=== PATIENT | female | born 2000 | race African-American/Black ===

== ENCOUNTER 2018-08-12 14:21 | Inpatient (IN) | payer OTHER, SELFPAY ==
[2018-08-12 14:36] VITALS: BMI 29.8
--- NOTE | 2018-08-12 15:00 | PDOC.LDHP ---
Labor and Delivery H&P Chief complaint: other (cramping) HPI: 17 yo G1 @ ~39.3wks by LMP presents to ob triage for abdominal cramping. She states that the cramping comes and goes and started yesterday. She denies LOF, VB, dysuria, discharge. Endorses movement. She has not had any care since the very first ultrasound in December. She thinks her LMP is 11/09/18 which would [address] her at aproximately 39.3wks but she cannot remember her due date. She denies n/v/d/fever. Current gestational age (weeks): 39 (39.3) Dating criteria: last menstrual period, first trimester ultrasound Grav: 1 OB History Details: no care Current complications: none Past Medical History: none Current medications: none Allergies/Adverse Reactions: Allergies Allergy/AdvReac Type Severity Reaction Status Date / Time No Known Allergies Allergy Verified 08/12/18 14:50 Social history: none - Physical Exam General: NAD Heart: RRR Lungs: CTAB Abdomen: gravid Extremeties: no edema FHT: category 2 [place] contractions every: every 5 minutes - Assessment #1)term, sIUP with abdominal cramping- -R/o labor-will monitor via NST; if miah regularly will do a cervical check -Ordered IOB labs and complete ultrasound d/t no prior care -Will provide pt with info to the [facility] if labor ruled out and pt discharged later #2)No care-IOB labs and complete ultrasound ordered
[2018-08-12 15:16] LABS: Amphetamine Not Detected (NotDetected); Barbiturates Screen Not Detected (NotDetected); Benzodiazepine Screen Not Detected (NotDetected); Cocaine Metabolite Screen Not Detected (NotDetected); Medtox Control Line Valid? VALID (VALID); Medtox Reader # READER 1; Methadone Not Detected (NotDetected); Methamphetamine Not Detected (NotDetected); Opiate Screen Not Detected (NotDetected); Oxycodone Screen Not Detected (NotDetected); Phencyclidine (PCP) Not Detected (NotDetected); THC/Cannabinoid Screen Not Detected (NotDetected); Tricyclic Screen Not Detected (NotDetected)
[2018-08-12 15:16] LABS: Hemoglobin 11.1 g/dL (12.0-16.0); Mean Corpuscular HGB CONC 32.1 g/dL (32.0-36.0); Mean Corpuscular Hemoglobin 25.5 pg (25.0-35.0); Mean Corpuscular Volume 79.4 fL (78.0-98.0); Mean Platelet Volume 6.9 fL (7.4-10.4); Platelet Count 325 thou/uL (130-400); RBC Distribution Width 14.1 % (11.5-14.5); Red Blood Cell (RBC) Count 4.35 mill/uL (4.00-5.20); White Blood Cell (WBC) Count 11.3 thou/uL (4.8-10.8)
[2018-08-12 15:47] LABS: Syphilis Antibody Nonreactive (Nonreactive); Syphilis Antibody Index 0.03 S/CO (<1.00 Non-Reactive)
[2018-08-12 15:48] LABS: HIV (1/2) Antibody/Antigen Non-Reactive (NonReactive); HIV 1/2 INDEX 0.06 S/CO (<1.00); Hep B Surf Ag Non-Reactive S/CO (NonReactive)
[2018-08-12 16:46] LABS: Amnisure Test No Membranes Rupture (No Rupture)
[2018-08-12 16:47] LABS: Amnisure Internal Control QC ACCEPTABLE (ACCEPTABLE)
--- NOTE | 2018-08-12 16:52 | ULT ---
FUltrasound obstetrical complete Biophysical profile Doppler duplex of umbilical artery: 08/12/2018 HISTORY: 17-year-old female in third trimester with no care. COMPARISON: None TECHNIQUE: Transabdominal transducer used to evaluate contents of gestational sac with grayscale. Color flow and spectral analysis of the umbilical artery. Biophysical profile obtained. FINDINGS: Biophysical profile: tone: 2 breathin movements: 2 Amniotic fluid: 2 Umbilical artery Doppler: Portion, PSV (cm/s), EDV (cm/s), S/D, PI, RI: At placenta: 30.7, 20.1, 1.53, 0.49, 0.35 Mid: 31.0, 18.8, 1.65, 0.54, 0.39 At cord insertion: 62.7, 26.6, 2.36, 0.95, 0.58 number: Maya lie: Vertex Maternal cervix: Obscured Amniotic fluid: JAS 3 cm heart rate: 130 bpm Placenta: Fundal and to the left. No placenta previa. anatomy: Four-chamber heart, stomach, kidneys, cord insertion, bladder, spine, and three-vessel cord, are visu alized. The rest of the anatomy is not visualized well. biometry: BPD: 8.6 cm 34 weeks 4 days Head circumference: 32.6 cm 36 weeks 6 days Abdominal circumference: 29.9 cm 33 weeks 6 days Femur length: 6.8 cm 34 weeks 6 days Average ultrasound age: 35 weeks 4 days Estimated date of delivery: 09/12/2018 Estimated weight: 2448 g +/- 362 g IMPRESSION: 1. Third trimester live intrauterine gestation. 2. Vertex presentation. 3. Apparent oligohydramnios. 4. Biophysical profile score of 8 out of 8 excluding the nonstress test. 5. Umbilical artery Doppler values as given above.
[2018-08-12] MEDS ORDERED: Diphenoxylate HCl/Atropine Tablet PO PRN ×2 (17:52)
[2018-08-12] MEDS ORDERED: Misoprostol 200 MCG TAB PR PRN (17:52)
[2018-08-12] MEDS ORDERED: Butorphanol Tartrate 1 MG/ML VIAL SLOW IVP PRN (17:52)
[2018-08-12] MEDS ORDERED: Methylergonovine 0.2 MG/ML VIAL IM PRN (17:52)
[2018-08-12] MEDS ORDERED: HYDROcodone/Acetaminophen 5/325 mg Tablet PO PRN ×2 (17:52)
[2018-08-12] MEDS ORDERED: NS / Oxytocin 40 units/1000ml 1,000 ML IV PRN (17:52)
[2018-08-12] MEDS ORDERED: Lidocaine 1% (PF) 30 ML VIAL SC PRN (17:52)
[2018-08-12] MEDS ORDERED: Acetaminophen 500 MG TAB PO PRN (17:52)
[2018-08-12] MEDS ORDERED: Ondansetron PF 4 MG/2 ML Vial IVP PRN ×2 (17:52→20:22)
[2018-08-12] MEDS ORDERED: Ibuprofen 800 MG TAB PO PRN (17:52)
[2018-08-12] MEDS ORDERED: Promethazine HCl 25 MG/ML VIAL IM PRN ×2 (17:52→20:22)
[2018-08-12] MEDS ORDERED: Carboprost 250 MCG/ML AMP IM PRN (17:52)
--- NOTE | 2018-08-12 17:56 | PDOC.EVN ---
Event Note - Event Note Event Note: Pt states that she had an US in December (can't remember day) and they told her that her due date was 08/16/18. She thinks her LMP is 11/09/18. This info would place her at 39.3wks by LMP/1T US. This US was done in [facility] at [facility] ( closed currently until tomorrow). Based on the US today she is measuring at 35.4wks placing the baby in the IUGR range. She also complained of some loss of fluid on her marga pad. The amnisure was negative. However we will do a speculum exam to rule out rupture of membranes. We will also proceed with admitting/delivery since based on her LMP/1T the pt is full-term and the baby is IUGR.
--- NOTE | 2018-08-12 18:20 | PDOC.EVN ---
Event Note - Event Note Event Note: Pt grossly ruptures on speculum exam. Will admit pt and proceed with expectant management. Recheck cervix @1830 and q2h after that.
[2018-08-12] MEDS ORDERED: Fentanyl 4 mcg/Bup 0.1% Cadd 100 ML ONE (19:19)
[2018-08-12] MEDS ORDERED: Penicillin G Potassium 5 MILL.UNITS VIAL ONE (19:51)
--- NOTE | 2018-08-12 19:53 | PDOC.EVN ---
Event Note - Event Note Event Note: Patient reports feeling like she was "peeing when she wasn't actually peeing" 2 days ago indicating likely prolonged SROM. Will start PCN for risk based GBS prophylaxis.
[2018-08-12] MEDS ORDERED: Penicillin G Potassium 5 MILL.UNITS in Sodium Chloride 0.9% 100 ML IVPB SCH (20:00)
--- NOTE | 2018-08-12 20:14 | PDOC.EVN ---
Event Note - Event Note Event Note: Received report from Dr. Izquierdo. 17 yo BF at term by dates and early USG presents with suspected IUGR, now SROM. Pen G started for unknown GBS status. Just received epidural. FHTs stable. UCs q 4-5 mins. Will start pitocin to effect delivery.
[2018-08-12] MEDS: Lactated Ringer's 1,000 ML IV SCH ×2 (20:21→20:22)
[2018-08-12] MEDS ORDERED: ePHEDrine/0.9% NaCl/PF SYRINGE 50 mg/10 ml SLOW IVP PRN (20:22)
[2018-08-12] MEDS ORDERED: Eucerin (Mineral Oil/Petrolatum,White) 30 gm Jar TOP PRN (20:22)
[2018-08-12] MEDS ORDERED: diphenhydrAMINE 50 MG/ML VIAL IVP PRN (20:22)
[2018-08-12] MEDS ORDERED: Naloxone HCl 0.4 mg/ml Vial IVP PRN ×2 (20:22)
[2018-08-12] MEDS ORDERED: Acetaminophen 325 MG TAB PO PRN (20:22)
[2018-08-12] MEDS ORDERED: Lactated Ringer's 500 ML IV PRN (20:22)
[2018-08-12] MEDS ORDERED: Fentanyl 4 mcg/Bupivacaine 0.1% Cassette 100 ML EPIDURAL SCH (20:30)
[2018-08-12] MEDS ORDERED: Communication Order-Pharmacy FS SCH (20:30)
[2018-08-12] MEDS ORDERED: metroNIDAZOLE 500 MG TAB PO SCH (21:00)
--- NOTE | 2018-08-12 23:32 | PDOC.EVN ---
Event Note - Event Note Event Note: Comfortable with epidural. Last exam 6 cm. Fhts stable with occ. variable seen. UCs q 2-3 mins. Pit at 2 mu/min. Cont. present management.
--- NOTE | 2018-08-13 00:01 | PDOC.EVN ---
Event Note - Event Note Event Note: Staying comfortable with epidural. SVE remains 6 cm. FHTs with repetative mild to moderate variables with shoulders. UCs q 3-5 mins. Pit at 2 mu/mins. Will place IUPC to document ctx and start amnioinfusion for variables.
[2018-08-13] MEDS: Penicillin G 2.5 MILL.units 2.5 MILL.UNITS in Premix Bag 1 BAG IVPB SCH ×2 (00:09→15:10)
[2018-08-13] MEDS: Lactated Ringer's 1,000 ML IV SCH (00:11)
--- NOTE | 2018-08-13 02:20 | PDOC.EVN ---
Event Note - Event Note Event Note: T now= 100.4. SVE unchanged. caput with cervical swelling noted. FHTs stable. UCs q 3-4 mins. Pitocin is off. Plan: Will proceed to 1* C/S 2* to FTP, suspected chorioamnionitis.
[2018-08-13] MEDS ORDERED: CEFAZOLIN 2 GM in Premix Bag 1 BAG IVPB SCH (02:30)
[2018-08-13] MEDS ORDERED: Bicitra 30 ML UDCUP PO SCH (02:30)
[2018-08-13] MEDS ORDERED: Azithromycin 500 MG in Sodium Chloride 0.9% 250 ML 250 ML IVPB SCH (03:00)
[2018-08-13] MEDS ORDERED: Midazolam HCl 2 mg/2 ml Vial ONE (03:34)
[2018-08-13] MEDS ORDERED: Dexamethasone 4 mg/ml Vial ONE (03:34)
[2018-08-13] MEDS ORDERED: Oxytocin 10 UNITS/ML VIAL ONE (03:34)
[2018-08-13] MEDS ORDERED: Ondansetron PF 4 MG/2 ML Vial ONE (03:34)
[2018-08-13] MEDS ORDERED: MORPHINE 5 MG/10 ML PF VIAL ONE (03:35)
[2018-08-13] MEDS ORDERED: Methylergonovine 0.2 MG/ML VIAL ONE (03:42)
[2018-08-13 03:58] LABS: Actual Bicarbonate (HCO3a) 24.9 mEq/L (22-28); Base Excess (BEa) -3.9 mEq/L (-2.0 to +3.0)
[2018-08-13 04:00] LABS: Actual Bicarbonate (HCO3v) 25 mEq/L (22-28); Base Excess -1.6 mEq/L (-2.0 to +3.0); pH (Cord, venous) 7.33 (7.32-7.43)
[2018-08-13] MEDS ORDERED: Communication Order-Pharmacy FS SCH (04:00)
[2018-08-13] MEDS ORDERED: Promethazine HCl 25 MG SUPP PR PRN (04:00)
[2018-08-13] MEDS ORDERED: Naloxone HCl 0.4 mg/ml Vial IVP PRN ×2 (04:00)
[2018-08-13] MEDS ORDERED: Eucerin (Mineral Oil/Petrolatum,White) 30 gm Jar TOP PRN (04:00)
[2018-08-13] MEDS ORDERED: Naloxone HCl 0.4 mg/ml Vial IV PRN (04:00)
[2018-08-13] MEDS ORDERED: Promethazine HCl 25 MG/ML VIAL IM PRN (04:00)
[2018-08-13] MEDS ORDERED: diphenhydrAMINE 50 MG/ML VIAL IVP PRN (04:00)
[2018-08-13] MEDS ORDERED: Ketorolac Tromethamine 30 MG/ML VIAL IVP SCH (04:00)
[2018-08-13] MEDS ORDERED: Ondansetron HCl/PF 4 MG/2 ML Vial IVP PRN (04:00)
[2018-08-13] MEDS ORDERED: Ketorolac Tromethamine 30 MG/ML VIAL IVP PRN (04:00)
[2018-08-13] MEDS ORDERED: HYDROmorphone 2 MG/ML VIAL SLOW IVP PRN (04:00)
[2018-08-13] MEDS ORDERED: Ondansetron PF 4 MG/2 ML Vial IVP PRN ×2 (04:00→05:53)
[2018-08-13] MEDS ORDERED: Meperidine HCl/PF 25 MG/ML VIAL SLOW IVP PRN (04:00)
[2018-08-13] MEDS ORDERED: L&D-Morphine 4 MG/ML VIAL SLOW IVP PRN (04:00)
[2018-08-13] MEDS ORDERED: NS / Oxytocin 40 units/1000ml 1,000 ML ONE (04:17)
[2018-08-13] MEDS: NS w/ Oxytocin 10 units 500 ML IV SCH ×2 (04:40→15:10)
--- NOTE | 2018-08-13 05:17 | OP ---
DATE OF PROCEDURE: 08/13/2018 PREOPERATIVE DIAGNOSES: 1. Suspected term intrauterine with possible intrauterine growth retardation and limited care. 2. Failure to progress. 3. Suspected chorioamnionitis. POSTOPERATIVE DIAGNOSES: 1. Term intrauterine with limited care. 2. Failure to progress. 3. Suspected chorioamnionitis. 4. Persistent occiput posterior. PROCEDURE PERFORMED: Primary low segment transverse section via Pfannenstiel incision. SURGEON: Eagle Solo MD [employer] SURGEON: Oksana Falcon MD, resident physician. FINDINGS: 1. Viable male infant, Apgars 7 and 9. Weight 6 pounds 7 ounces, found in the occiput posterior position. 2. Normal uterus, tubes, and ovaries bilaterally. 3. Arterial cord pH of 7.23. PROPHYLAXIS: Ancef 2 g and Zithromax 500 mg preoperatively. QUANTITATIVE BLOOD LOSS: 415 mL. COMPLICATIONS: None. TECHNIQUE IN DETAIL: After good epidural anesthesia was achieved, the patient was prepped and draped in usual sterile fashion in the supine position with a leftward tilt. A Pfannenstiel incision was made, and the abdomen was entered in layers. The uterus was identified, and self-retaining retractor was placed. A transverse incision was made across the lower uterine segment and was extended bluntly using the fingers. The fetus was found in the occiput posterior position and was delivered with fundal pressure. There was a loop of cord around the baby's shoulders. The cord was clamped and cut, and the nasopharynx of the baby was bulb suctioned. The baby was taken to the staff, who was in attendance. The placenta was manually removed after cord blood and cord gases were obtained. The inside of the uterus was curetted with a dry lap to remove all remaining placental fragments. Closure of the uterine incision was begun using a running locking suture of Monocryl. Good hemostasis was noted with single-layer closure. The uterus was replaced in the abdominal cavity, and the peritoneal cavity was copiously irrigated. The uterine incision was again reviewed and was noted to be hemostatic. The retractor was then removed, and the peritoneum was closed using a running suture of Monocryl. The rectus muscles were inspected and noted to be dry. Closure of the fascia was accomplished using 0 Monocryl brought laterally to the midline. The subcutaneous tissue was thoroughly irrigated and made dry using Bovie coagulation technique. The skin was closed with metal jesusita. Sponge, lap, and needle counts were correct. The patient tolerated the procedure well and was taken to the recovery room in good condition. Job ID: [id number] [facility]
[2018-08-13] MEDS ORDERED: NS / Oxytocin 40 units/1000ml 1,000 ML IV SCH (05:53)
[2018-08-13] MEDS ORDERED: diphenhydrAMINE 25 MG CAP PO PRN (05:53)
[2018-08-13] MEDS ORDERED: Lanolin Ointment 7 GM TUBE TOP PRN (05:53)
[2018-08-13] MEDS ORDERED: Bisacodyl 10 MG SUPP PR PRN (05:53)
[2018-08-13] MEDS ORDERED: HYDROcodone/Acetaminophen 5/325 mg Tablet PO PRN ×3 (05:53→13:48)
[2018-08-13] MEDS: Ibuprofen 800 MG TAB PO SCH ×3 (08:06→21:34)
[2018-08-13] MEDS: Ferrous Sulfate 325 MG TAB PO SCH ×2 (08:07→21:35)
[2018-08-13] MEDS: Docusate Calcium (SURFAK) 240 MG CAP PO SCH ×2 (08:07→21:34)
[2018-08-13] MEDS: Prenatal Vitamin 1 TAB PO SCH (08:08)
[2018-08-13] MEDS ORDERED: Adacel (T-DAP) 0.5 ML SYRINGE IM ONE (09:00)
[2018-08-13] MEDS ORDERED: Measles/Mumps/Rubella 10 MCG/0.5 ML VIAL SC ONE (09:00)
[2018-08-13 16:16] LABS: Hemoglobin 10.1 g/dL (12.0-16.0); Mean Corpuscular HGB CONC 32.2 g/dL (32.0-36.0); Mean Corpuscular Hemoglobin 25.6 pg (25.0-35.0); Mean Corpuscular Volume 79.5 fL (78.0-98.0); Mean Platelet Volume 6.9 fL (7.4-10.4); Platelet Count 288 thou/uL (130-400); RBC Distribution Width 14.2 % (11.5-14.5); Red Blood Cell (RBC) Count 3.96 mill/uL (4.00-5.20); White Blood Cell (WBC) Count 16.9 thou/uL (4.8-10.8)
[2018-08-13] MEDS: Simethicone Chewable 80 MG TAB PO PRN ×2 (16:29→21:34)
[2018-08-13] MEDS: HYDROcodone/Acetaminophen 5/325 mg Tablet PO PRN (16:30)
[2018-08-14] MEDS: Ibuprofen 800 MG TAB PO SCH ×3 (05:05→21:26)
[2018-08-14] MEDS: HYDROcodone/Acetaminophen 5/325 mg Tablet PO PRN (05:05)
--- NOTE | 2018-08-14 08:36 | PDOC.PP ---
Post Progress Note Post Day #: 2 Subjective: 17 yo G1 with no care admitted for latent labor and concern for IUGR in this , now s/p primary LTCS d/t failure to progress. PO intake tolerated: yes Flatus: yes Ambulation: yes Vital Signs (12 hours) Temp Pulse Resp BP BP Pulse Ox 08/14/18 08:20 98.3 F 71 20 121/89 98 08/14/18 05:00 98.2 F 81 16 101/65 08/13/18 23:33 99.7 F H 83 16 119/83 08/13/18 21:45 103 H 103/97 H Weight Weight 78.925 kg - Physical Examination General: NAD Cardiovascular: no m/r/g, RRR Respiratory: clear to auscultation bilaterally, non-labored breathing Abdominal: + bowel sounds, lochia (minimal) Skin: CS incision dry & intact Neurological: no gross focal deficits Psychiatric: A&Ox3, normal affect Result Diagrams: 08/14/18 09:03 Additional Labs: Post Labs Blood Type O POSITIVE 08/12/18 17:16 Hep Bs Antigen Non-Reactive S/CO (NonReactive) 08/12/18 15:02 Rubella IgG Antibody 4.21 index (Immune >0.99) 08/12/18 15:02 (1) S/P section Code(s): Z98.891 - HISTORY OF UTERINE SCAR FROM PREVIOUS SURGERY Status: Acute (2) No care in current Code(s): O09.30 - SUPRVSN OF PREG W INSUFFICIENT ANTENAT CARE, UNSP TRIMESTER Status: Acute - Assessment/Plan 17 yo G1 s/p primary LTCS to a suspected term male infant based on pt's hx of edc 08/16, POD 2 #sIUP, delivered via primary LTCS -pt underwent csection for failure to progress -she did spike one fever but has been afebrile since that time; wbc increased to 16, however afebrile and uterus nontender on exam; will continue to monitor -pt received amp and azithro prior to -routine care -cm consult to assist pt; pt desires to keep the baby (there was initial question of possible adoptions) -norco prn pain -gabrielle ibuprofen -doc/senna -encourage ambulation -pt tolerating normal diet -anticipate dc >72 hours; jesusita to be removed prior to discharge -discussed follow-up with [facility] for care #No care- -aware Mumtaz Hanna MD, PGY-2 Addendum - Attending - Attending Attestation Date/Time: 08/14/18 1005 I personally evaluated the patient and discussed the management with Dr. Falcon. Doing well s/p 1* C/S for FTP. I agree with the History, Examination, Assessment and Plan documented above.
--- NOTE | 2018-08-14 08:38 | PRG ---
DATE OF SERVICE: 08/14/2018 SUBJECTIVE: The patient is postoperative day 1, status post primary for failure to progress. The patient reports overnight she has had good pain control and have been tolerating p.o., has began walking on her own and has voided on her own. OBJECTIVE: VITAL SIGNS: Blood pressure is 98.2, pulse of 81, respiratory rate of 16, and blood pressure of 101/65. Of note, she has had a T-max of 99.7. The patient did have an elevated temperature just prior to delivery. ABDOMEN: Incision is clean, dry, and intact and soft. Fundus is firm. EXTREMITIES: Nontender, nonedematous. LABORATORY DATA: Post delivery, hemoglobin unavailable at this time. ASSESSMENT AND PLAN: The patient is postop day 1, status post a primary . The patient is recovering well. I have ordered a repeat CBC for evaluation of her postoperative hemoglobin and hematocrit. The patient has no evidence of persistent fever or infection, though the patient is at risk with the elevated temperature just prior to this delivery. We will continue in-house postoperative care. Job ID: [id number]
[2018-08-14] MEDS: Docusate Calcium (SURFAK) 240 MG CAP PO SCH ×2 (08:57→21:26)
[2018-08-14] MEDS: Prenatal Vitamin 1 TAB PO SCH (08:57)
[2018-08-14] MEDS: Ferrous Sulfate 325 MG TAB PO SCH ×2 (09:00→21:26)
[2018-08-14 09:10] LABS: #Basophils 0.1 thou/uL (0.0-0.2); #Eosinphils 0.2 thou/uL (0.0-0.7); #Lymphocytes 3.1 thou/uL (1.20-3.40); #Monocytes 1.9 thou/uL (0.11-0.59); #Neutrophils 9.8 thou/uL (1.40-6.50); %Basophils 0.4 % (0.0-1.0); %Eosinophils 1.6 % (0.0-10.0); %Lymphocytes 20.6 % (28.0-48.0); %Monocytes 12.4 % (0.0-4.0); %Neutrophils 65.1 % (31.0-61.0); Mean Corpuscular HGB CONC 31.4 g/dL (32.0-36.0); Mean Corpuscular Volume 79.8 fL (78.0-98.0); Mean Platelet Volume 6.7 fL (7.4-10.4); Platelet Count 299 thou/uL (130-400); RBC Distribution Width 14.1 % (11.5-14.5); Red Blood Cell (RBC) Count 3.98 mill/uL (4.00-5.20); White Blood Cell (WBC) Count 15.1 thou/uL (4.8-10.8)
[2018-08-14 18:06] LABS: Chlamydia by PCR DETECTED (NotDetected); GC by PCR Not Detected (NotDetected)
[2018-08-15] MEDS: Ibuprofen 800 MG TAB PO SCH ×3 (06:15→21:37)
[2018-08-15 07:32] LABS: Hemoglobin 9.5 g/dL (12.0-16.0); Mean Corpuscular HGB CONC 32.9 g/dL (32.0-36.0); Mean Corpuscular Hemoglobin 25.9 pg (25.0-35.0); Mean Corpuscular Volume 78.8 fL (78.0-98.0); Platelet Count 304 thou/uL (130-400); RBC Distribution Width 14.4 % (11.5-14.5); Red Blood Cell (RBC) Count 3.67 mill/uL (4.00-5.20); White Blood Cell (WBC) Count 13.1 thou/uL (4.8-10.8)
--- NOTE | 2018-08-15 07:42 | PDOC.PP ---
Post Progress Note Post Day #: 2 Subjective: Doing well. Ambulating, passing flatus, tolerating po, pain controlled. PO intake tolerated: yes Flatus: yes Ambulation: yes Vital Signs (12 hours) Temp Pulse Resp BP Pulse Ox 08/15/18 03:50 98.4 F 101 H 18 106/63 08/15/18 00:00 98.3 F 69 18 121/78 08/14/18 20:00 98.5 F 72 18 129/84 96 Weight Weight 78.925 kg - Physical Examination General: NAD Cardiovascular: no m/r/g, RRR Respiratory: clear to auscultation bilaterally, non-labored breathing Abdominal: lochia Result Diagrams: 08/15/18 07:05 Additional Labs: Post Labs Blood Type O POSITIVE 08/12/18 17:16 Hep Bs Antigen Non-Reactive S/CO (NonReactive) 08/12/18 15:02 Rubella IgG Antibody 4.21 index (Immune >0.99) 08/12/18 15:02 (1) S/P section Code(s): Z98.891 - HISTORY OF UTERINE SCAR FROM PREVIOUS SURGERY Status: Acute (2) No care in current Code(s): O09.30 - SUPRVSN OF PREG W INSUFFICIENT ANTENAT CARE, UNSP TRIMESTER Status: Acute - Assessment/Plan 17 yo G1 s/p primary LTCS to a suspected term male based on pt's hx of edc 08/16, POD 2 #sIUP, delivered via primary LTCS -pt underwent csection for failure to progress -she did spike one fever but has been afebrile since that time; wbc increased to 16, downtrended to 13, afebrile and uterus nontender on exam this initial fever; will continue to monitor -pt received amp and azithro prior to -routine care -norco prn pain and gabrielle ibuprofen 800mg TID -doc/senna prn -encourage ambulation -pt tolerating normal diet -anticipate dc >72 hours; jesusita to be removed prior to discharge -discussed follow-up at [facility] for care #Chlamydia infection- -Ordered 1g azithromicin now #No care- -aware Dispo: dc planning for tomorrow CODE: Full DVT prophylaxis: encourage ambulation, SCDs H. Ezekiel Hanna MD, PGY-2
[2018-08-15] MEDS ORDERED: Azithromycin 250 MG TAB PO SCH ×2 (08:15→09:00)
[2018-08-15] MEDS: Prenatal Vitamin 1 TAB PO SCH (09:13)
[2018-08-15] MEDS: Docusate Calcium (SURFAK) 240 MG CAP PO SCH ×2 (09:13→21:37)
[2018-08-15] MEDS: Ferrous Sulfate 325 MG TAB PO SCH ×2 (09:13→21:37)
[2018-08-16] MEDS: Ibuprofen 800 MG TAB PO SCH (06:17)
--- NOTE | 2018-08-16 06:18 | PDOC.PP ---
Post Progress Note Post Day #: 3 Subjective: Doing well, pain wel controlled. Treated for chlamydia yesterday. PO intake tolerated: yes Flatus: yes Ambulation: yes Vital Signs (12 hours) Temp Pulse Resp BP Pulse Ox 08/16/18 00:00 97.5 F L 87 20 119/74 08/15/18 19:25 97.9 F 89 18 119/77 99 Weight Weight 174 lb - Physical Examination General: NAD Cardiovascular: no m/r/g Respiratory: clear to auscultation bilaterally Abdominal: + bowel sounds, lochia, no distention, appropriately TTP Extremities: negative homans (B) Skin: CS incision dry & intact, no rash Neurological: no gross focal deficits Psychiatric: A&Ox3, normal affect Result Diagrams: 08/15/18 07:05 Additional Labs: Post Labs Blood Type O POSITIVE 08/12/18 17:16 Hep Bs Antigen Non-Reactive S/CO (NonReactive) 08/12/18 15:02 Rubella IgG Antibody 4.21 index (Immune >0.99) 08/12/18 15:02 (1) No care in current Code(s): O09.30 - SUPRVSN OF PREG W INSUFFICIENT ANTENAT CARE, UNSP TRIMESTER Status: Acute (2) S/P section Code(s): Z98.891 - HISTORY OF UTERINE SCAR FROM PREVIOUS SURGERY Status: Acute - Assessment/Plan A/P: POD3...doing well. Treated for chlamydia yesterday by Dr Falcon. No evidence metritis or ileus...ok for DC to home today. Ema out today, or Monday (preferred) Home with motrin prn follow up with [facility] in 2 weeks wound check
--- NOTE | 2018-08-16 07:20 | PDOC.PP ---
Post Progress Note Post Day #: 3 Subjective: Doing well. Pain controlled. Ambulating, voiding, passing flatus/stool, tolerating normal diet, no pain at incision site. Minimal bleeding. PO intake tolerated: yes Flatus: yes Ambulation: yes Vital Signs (12 hours) Temp Pulse Resp BP Pulse Ox 08/16/18 00:00 97.5 F L 87 20 119/74 08/15/18 19:25 97.9 F 89 18 119/77 99 Weight Weight 78.925 kg - Physical Examination General: NAD Cardiovascular: no m/r/g, RRR Respiratory: clear to auscultation bilaterally, non-labored breathing Abdominal: + bowel sounds, lochia (minimal) Skin: CS incision dry & intact, no rash Neurological: no gross focal deficits Psychiatric: A&Ox3, normal affect Result Diagrams: 08/15/18 07:05 Additional Labs: Post Labs Blood Type O POSITIVE 08/12/18 17:16 Hep Bs Antigen Non-Reactive S/CO (NonReactive) 08/12/18 15:02 Rubella IgG Antibody 4.21 index (Immune >0.99) 08/12/18 15:02 (1) S/P section Code(s): Z98.891 - HISTORY OF UTERINE SCAR FROM PREVIOUS SURGERY Status: Acute (2) No care in current Code(s): O09.30 - SUPRVSN OF PREG W INSUFFICIENT ANTENAT CARE, UNSP TRIMESTER Status: Acute - Assessment/Plan 17 yo G1 s/p primary LTCS 2/2 failure to progress and intrapartum fever. #sIUP, delivered via primary LTCS -pt underwent csection for failure to progress -she did spike one fever but has been afebrile since that time; wbc increased to 16, downtrended to 13, afebrile and uterus nontender on exam this initial fever; will continue to monitor -pt received amp and azithro prior to -pt has undergone routine care and can be discharged today, with close follow-up. Needs jesusita out POD#5; will coordinate with [facility] to get pt in on Monday for jesusita removal. -will send ibuprofen 800mg TID prn -doc/senna prn -will send in a script for iron as H/H 9.5/28.9 and stool softener #Chlamydia infection- -S/p1g azithromicin yesterday #No care- -aware, pt to follow-up at [facility] for jesusita removal Dispo: dc planning for today CODE: Full DVT prophylaxis: encourage ambulation, SCDs Mumtaz Hanna MD, PGY-2
[2018-08-16] MEDS: Prenatal Vitamin 1 TAB PO SCH (08:02)
[2018-08-16] MEDS: Docusate Calcium (SURFAK) 240 MG CAP PO SCH (08:02)
[2018-08-16] MEDS: Ferrous Sulfate 325 MG TAB PO SCH (08:02)
[2018-08-16 08:31] VITALS: BP 123/77; TEMP 98.1
== END 2018-08-16 15:10 | disposition home or self-care (01) | DRG 787 ==
LOC: L&D/OP 14:21 → L&D 18:25 → 3SW 08-13 07:10
PROVIDERS: ADMIT Obstetrics & Gynecology; ATTEND Obstetrics & Gynecology
PROC: 10D00Z1 Extraction of Products of Conception, Low, Open Approach (ICD-10-PCS; principal; 2018-08-13)
DX: O66.40 Failed trial of labor, unspecified (principal); O98.82 Other maternal infectious and parasitic diseases complicating childbirth; O09.33 Supervision of pregnancy with insufficient antenatal care, third trimester; B96.89 Other specified bacterial agents as the cause of diseases classified elsewhere; Z3A.39 39 weeks gestation of pregnancy; Z37.0 Single live birth; Z98.891 History of uterine scar from previous surgery
CPT/HCPCS: 36415; 36416; 51702; 59025; 76700; 76805; 76819; 80306; 82805; 84112; 85025; 85027; 86762; 86780; 86850; 86900; 86901; 87081; 87340; 87389; 87480; 87510; 87660; 88307; 90715; 99285; J0456; J0595; J1100; J1885; J2210; J2250; J2270; J2405; J2540; J2590; J7050

== ENCOUNTER 2019-03-04 16:31 | Emergency (ER) | payer BC, SELFPAY ==
[2019-03-04 17:09] LABS: #Basophils 0.1 thou/uL (0.0-0.2); #Eosinphils 0.5 thou/uL (0.0-0.7); #Lymphocytes 2.6 thou/uL (1.20-3.40); #Monocytes 0.8 thou/uL (0.11-0.59); #Neutrophils 4.7 thou/uL (1.40-6.50); %Basophils 0.9 % (0.0-1.0); %Eosinophils 5.7 % (0.0-10.0); %Lymphocytes 29.8 % (28.0-48.0); %Monocytes 9.4 % (0.0-4.0); %Neutrophils 54.1 % (31.0-61.0); Hemoglobin 12.8 g/dL (12.0-16.0); Mean Corpuscular HGB CONC 31.4 g/dL (32.0-36.0); Mean Corpuscular Hemoglobin 27.2 pg (25.0-35.0); Mean Corpuscular Volume 86.9 fL (78.0-98.0); Mean Platelet Volume 6.9 fL (7.4-10.4); Platelet Count 278 thou/uL (130-400); RBC Distribution Width 12.9 % (11.5-14.5); Red Blood Cell (RBC) Count 4.68 mill/uL (4.00-5.20); White Blood Cell (WBC) Count 8.6 thou/uL (4.8-10.8)
[2019-03-04 18:14] LABS: Bilirubin Negative (Negative); Blood, Urine Negative (Negative); Clarity Clear (Clear); Glucose, Urine (Dipstick) Normal (Negative); Leukocyte 25 Leu/uL (Negative); Nitrite Negative (Negative); Protein, Urine (Dipstick) Negative (Neg-Trace); RBC/HPF 0-3 HPF (0-3); Squamous Epithelial None Seen HPF (0-3); Urobilinogen Normal mg/dL (Less than 2)
[2019-03-04 18:15] LABS: Bacteria/HPF 1+ HPF (None Seen)
--- NOTE | 2019-03-04 18:47 | ULT ---
TRANSABDOMINAL TRANSVAGINAL PELVIC ULTRASOUND DATE:: 03/04/2019 5:54 PM CLINICAL HISTORY: History of . COMPARISON: None. TECHNIQUE: Grayscale, color Doppler and spectral Doppler images were obtained of the pelvis see a tra nsabdominal transvaginal approach Uterus: Size: 9.4 x 4.2 x 5.9 Mass: None Cervix: Within normal limits Endometrium: 1.07 cm thickness, with thin normal limits for a premenopausal female. No intrauterine g estation demonstrated. Ovaries: Size: right measures 2.7 x 1.3 x 2.7 cm; left measures 2.9 x 1.8 x 3.0 cm Mass: There is a 2.5 cm left ovarian cyst.. Flow: Normal Cul-de-sac: Minimal free fluid IMPRESSION: No intrauterine gestation demonstrated. Findings are consistent with a of undetermined loca tion. Findings may reflect early , ectopic or missed . Continued clinical and sonographic follow up is recommended. Left ovarian cyst.
== END 2019-03-04 18:56 | disposition home or self-care (01) ==
LOC: ERS 16:31
DX: O20.0 Threatened abortion (principal); Z3A.01 Less than 8 weeks gestation of pregnancy
CPT/HCPCS: 36415; 76856; 81003; 81015; 84702; 85025; 86900; 86901

== ENCOUNTER 2019-03-17 09:07 | Inpatient (IN) | payer BC ==
[2019-03-17] MEDS ORDERED: Acetaminophen 500 MG TAB ONE (09:29)
--- NOTE | 2019-03-17 09:52 | RAD ---
RADIOGRAPH CHEST 1 VIEW: DATE: 03/17/2019 HISTORY: 18-year-old female with chest pain FINDINGS: Lungs are hypoinflated; Limited study. There are no airspace densities, pulmonary edema, pneumothorax , or cardiomegaly. The lateral costophrenic angles are sharp. IMPRESSION: No acute cardiopulmonary findings.
[2019-03-17 10:12] LABS: ALT (SGPT) 7 U/L (8-55); AST (SGOT) 13 U/L (5-34); Albumin 4.5 g/dL (3.5-5.0); Alkaline Phosphatase 95 U/L (40-100); Anion Gap 16 mmol/L (10-20); BUN (Urea Nitrogen) 8 mg/dL (7.0-18.7); Bilirubin, Total 1.1 mg/dL (0.2-1.2); Calc. Creatinine Clearance 0 mL/min (70-130); Calcium 9.5 mg/dL (7.8-10.44); Carbon Dioxide 23 mmol/L (22-29); Chloride 100 mmol/L (98-107); Estimated GFR-MDRD 86; Globulin 3.5 g/dL (2.4-3.5); Glucose 106 mg/dL (70-105); Lipase 4 U/L (8-78); Potassium 3.2 mmol/L (3.5-5.1); Sodium 136 mmol/L (136-145)
[2019-03-17 10:18] LABS: Bacteria/HPF 4+ HPF (None Seen); Bilirubin Negative (Negative); Blood, Urine 2+ (Negative); Clarity Turbid (Clear); Glucose, Urine (Dipstick) Normal (Negative); Leukocyte 500 Leu/uL (Negative); Nitrite Negative (Negative); Protein, Urine (Dipstick) 70 mg/dL (Neg-Trace); RBC/HPF Greater than 50 HPF (0-3); Urobilinogen Normal mg/dL (Less than 2); WBC/HPF Greater than 50 HPF (0-3)
[2019-03-17] MEDS ORDERED: cefTRIAXone\\ROCEPHIN 1 GM VIAL ONE (10:27)
[2019-03-17 10:33] LABS: Hemoglobin 14.2 g/dL (12.0-16.0); Mean Corpuscular HGB CONC 33.1 g/dL (32.0-36.0); Mean Corpuscular Hemoglobin 28.2 pg (25.0-35.0); Mean Corpuscular Volume 85.2 fL (78.0-98.0); Mean Platelet Volume 7.3 fL (7.4-10.4); Platelet Count 263 thou/uL (130-400); RBC Distribution Width 12.5 % (11.5-14.5); Red Blood Cell (RBC) Count 5.06 mill/uL (4.00-5.20); White Blood Cell (WBC) Count 22.7 thou/uL (4.8-10.8)
--- NOTE | 2019-03-17 10:36 | ULT ---
ULTRASOUND ABDOMEN LIMITED: (RIGHT UPPER QUADRANT) DATE: 03/17/2019 HISTORY: Right upper quadrant abdominal pain in 18-year-old female FINDINGS: Gallbladder: Normal wall thickness. No gallstones or sludge identified. No pericholecystic fluid. Liver: Normal parenchymal echogenicity. Right kidney: No hydronephrosis. Pancreas: Visualized, with no gross sonographic abnormality identified (although ultrasound is relati vely insensitive for the detection of pancreatic pathology compared to CT and MRI.). Common duct caliber: 3 mm. IMPRESSION: Normal.
[2019-03-17 10:45] LABS: Band 9 % (5-11); Eosinophils 4 % (0-10); Lymphocytes 10 % (28-48); MDiff Complete? YES; Metamyelocyte 1 % (0-0); Monocytes 3 % (0-4); Neutrophil 70 % (31-61); Reactive Lymphocytes 2 % (0-10)
--- NOTE | 2019-03-17 10:57 | ULT ---
ULTRASOUND PELVIC ULTRASOUND TRANSVAGINAL DOPPLER DUPLEX: DATE: 03/17/2019 HISTORY: 18-year-old female with pelvic pain TECHNIQUE: Transabdominal transducer and endovaginal transducer used to visualize intrapelvic contents with mcintosh scale, color-flow, and spectral analysis. FINDINGS: Uterus: 8 x 3.5 x 5 cm. Endometrial stripe: 0.5 cm (5 mm). No moderate sized or large uterine leiomyoma. Right ovary: 2.5 x 3.5 x 1.5 cm. Left ovary: 2.5 x 4 x 2 cm. 1.5 cm dominant follicle, one in each ovary. Blood flow demonstrated in both ovaries by Doppler. No free fluid in cul-de-sac. IMPRESSION: No major pathology identified.
[2019-03-17] MEDS ORDERED: Potassium Chloride 20 MEQ TAB ONE (12:13)
[2019-03-17] MEDS ORDERED: Ondansetron ODT 4 MG TAB PO PRN (13:19)
[2019-03-17] MEDS ORDERED: Ondansetron PF 4 MG/2 ML Vial IVP PRN (13:19)
--- NOTE | 2019-03-17 13:27 | PDOC.FPRHP ---
- History of Present Illness Chief Complaint: R-flank pain History of Present Illness: 18-year-old female, with a past medical history of spontaneous about two weeks ago presents to the emergency department with four days of a headache , right sided flank pain, and bilateral lower extremity pain. Patient denies any dysuria, bloody/dark stools, or smelly urine. Patient states that back in August she gave to her first child and was told that she had chlamydia. Patient states she never received any treatment for this. Patient denies any new sexual partners or any other history of STD. Patient denies any vaginal discharge or abnormal uterine bleeding outside of the two weeks ago. The patient states that two weeks ago she had eight days a very heavy bleeding. Before this she had tested positive for test. Patient has not had any follow up on this problem. Patient c/o right upper quadrant abdominal pain. Denies any history of gallstones. Patient denies any chest pain or shortness of breath. Patient denies any constipation or diarrhea. Patient admits to being nauseous and vomiting yellow emesis this morning and been unable to tolerate food today. ED course: pt fluid resuscitated and started on rocephin. WBC 22.7, HR 121. Admitted for sepsis 2/2 pyelonephritis. - Allergies/Adverse Reactions Allergies Allergy/AdvReac Type Severity Reaction Status Date / Time No Known Allergies Allergy Verified 08/12/18 14:50 - Home Medications Medication Instructions Recorded Confirmed Type Acetaminophen With Codeine 1 - 2 tablet PO Q6HR PRN 08/16/18 03/17/19 History [Tylenol with Codeine #3] Docusate Calcium [Surfak] 240 mg PO BID #30 cap 08/16/18 03/17/19 Rx Ferrous Sulfate [Feosol] 325 mg PO BID #60 tab 08/16/18 03/17/19 Rx Ibuprofen [Motrin] 800 mg PO Q8HR #20 tab 08/16/18 03/17/19 Rx - History PMHx: spontaneous X2 weeks ago, chlamydia. PSHx: FHx: non-contributory Social: Denies smoking, etoh, or drug use. States she has no new sexual partners. - Review of Systems General: reports: fever/chills, fatigue. denies: weight/appetite/sleep changes , night sweats Eyes: denies: eye pain, vision changes ENT: denies: nasal congestion Respiratory: denies: cough, congestion, shortness of breath Cardiovascular: denies: chest pain, palpitation, edema Gastrointestinal: reports: nausea, vomiting, abdominal pain. denies: diarrhea, constipation Genitourinary: denies: incontinence, dysuria, polyuria, discharge Skin: denies: rashes Musculoskeletal: reports: pain, tenderness (R flank) Neurological: denies: syncope, seizure - Vital signs BP: 121/72 HR: 121 RR: 18 Tmax: 98.2 Pox: 100% on RA Wt: 79.4 kg - Physical Exam Constitutional: NAD, awake, alert and oriented, well developed HEENT: normocephalic and atraumatic, PERRLA, EOMI, conjunctiva clear, no scleral icterus, grossly normal vision, grossly normal hearing, MMM, oropharynx clear, good dention Neck: supple, FROM, trachea midline, no LAD, no JVD, no thyromegaly Heart: RRR, normal S1/S2, pulses present -Heart: soft systolic murmur Lungs: CTAB, no respiratory distress, good air movement, no rales/rhonchi, no wheezing, no retractions Abdomen: soft, bowel sounds present, no masses/distention -Abdomen: RUQ and suprapubic abdominal tenderness to palpation Musculoskeletal: normal structure, normal tone, ROM grossly normal -Musculoskeletal: CVA tenderness on R. Neurological: no focal deficit, CN II-XII intact, normal sensation Skin: no rash/lesions, good turgor, capillary refill <2 seconds, no jaundice Heme/Lymphatic: no unusual bruising or bleeding, no purpura, no petechia Psychiatric: normal mood and affect, good judgment and insight, intact recent and remote memory Additional comment: exam: Spec exam: moderate tenderness with insertion of speculum and with CMT. Yellow, thick, foul smelling discharge from cervical os. Closed os. FMR H&P: Results - Labs Result Diagrams: 03/17/19 09:20 03/17/19 09:20 Lab results: WBC 22.7 thou/uL (4.8-10.8) H 03/17/19 09:20 Hgb 14.2 g/dL (12.0-16.0) 03/17/19 09:20 Hct 43.1 % (36.0-47.0) 03/17/19 09:20 MCV 85.2 fL (78.0-98.0) 03/17/19 09:20 Plt Count 263 thou/uL (130-400) 03/17/19 09:20 Band Neuts % (Manual) 9 % (5-11) 03/17/19 09:20 Sodium 136 mmol/L (136-145) 03/17/19 09:20 Potassium 3.2 mmol/L (3.5-5.1) L 03/17/19 09:20 Chloride 100 mmol/L (98-107) 03/17/19 09:20 Carbon Dioxide 23 mmol/L (22-29) 03/17/19 09:20 BUN 8 mg/dL (7.0-18.7) 03/17/19 09:20 Creatinine 1.00 mg/dL (0.6-1.1) 03/17/19 09:20 Glucose 106 mg/dL (70-105) H 03/17/19 09:20 Lactic Acid 1.1 mmol/L (0.5-2.2) 03/17/19 09:20 Calcium 9.5 mg/dL (7.8-10.44) 03/17/19 09:20 Total Bilirubin 1.1 mg/dL (0.2-1.2) 03/17/19 09:20 AST 13 U/L (5-34) 03/17/19 09:20 ALT 7 U/L (8-55) L 03/17/19 09:20 Alkaline Phosphatase 95 U/L (40-100) 03/17/19 09:20 Serum Total Protein 8.0 g/dL (6.0-8.3) 03/17/19 09:20 Albumin 4.5 g/dL (3.5-5.0) 03/17/19 09:20 Lipase 4 U/L (8-78) L 03/17/19 09:20 Urine Ketones 40 mg/dL (Negative) A 03/17/19 09:30 Urine Blood 2+ (Negative) A 03/17/19 09:30 Urine Nitrite Negative (Negative) 03/17/19 09:30 Ur Leukocyte Esterase 500 Elizabeth/uL (Negative) A 03/17/19 09:30 Urine RBC Greater than 50 HPF (0-3) A 03/17/19 09:30 Urine WBC Greater than 50 HPF (0-3) A 03/17/19 09:30 Ur Squamous Epith Cells 11-20 HPF (0-3) A 03/17/19 09:30 Urine Bacteria 4+ HPF (None Seen) A 03/17/19 09:30 - EKG Interpretation EKG: sinus tachycardia, with T wave inversions rate 126 - Radiology Interpretation US - abdomen Status: report reviewed by me (normal) Other Status: report reviewed by me (pelvic US: no abnormal findings) FMR H&P: A/P - Problem List (1) Pyelonephritis Current Visit: Yes Status: Acute Code(s): N12 - TUBULO-INTERSTITIAL NEPHRITIS, NOT SPCF ACUTE OR CHRONIC (2) Leukocytosis Current Visit: Yes Status: Acute Code(s): D72.829 - ELEVATED WHITE BLOOD CELL COUNT, UNSPECIFIED (3) Sepsis Current Visit: Yes Status: Acute Code(s): A41.9 - SEPSIS, UNSPECIFIED ORGANISM Qualifiers: Sepsis type: sepsis due to unspecified organism Sepsis acute organ dysfunction status: without acute organ dysfunction Qualified Code(s): A41.9 - Sepsis, unspecified organism - Plan 18 y/o F admitted to medical for further treatment and evaluation of sepsis, most likely secondary to pyelonephritis. 1. Sepsis 2/2 suspected pyelonephritis, PID, or UTI, vs gallbladder etiology - SIRS: HR 121, 22.7 - Pt fluid resuscitated and Rocephin started in ED. - Continue maintenance fluids at LR 125 mL/hr. - Continue Rocephin 1 G Q24H - additional workup: CT abd, HIDA scan, VP3, GC/C - urine ccx and blood ccx pending - Spec Exam: Tenderness with exam, yellow, foul smelling discharge at os. 2. Pyelonephritis is most likely diagnosis, vs PID. - DDx: PID, Cystitis, gallbladder etiology - CVA tenderness - CT abd pending - WBC 22.7 - Continue antibiotics and IVF hydration - GC/C, VP3 pending 3. Leukocytosis - WBC 22.7 - will trend CBC daily - UA shows evidence of UTI, probably pyelonephritis 4. Hx of spontaneous - X2 weeks ago 5. Hx of Chlamydia - Pt unsure is she was treated - GC/C swab pending - Spec Exam: Tenderness with exam, yellow, foul smelling discharge at os. Code status: Full code Diet: regular diet DVT ppx: SCD's Dispo: admitted to inpatient medical for antibiotics for pyelonephritis. anticipated stay >48 Hr. FMR H&P: Upper Level - Pertinent history 18 yo female with 4 day history of fever, headache, and side pain. Patient reports positive chlamydia history without treatment. She denies hematuria, or dysuria. Please see risk management internship note above for further information. Physical Exam: General: NAD, appears stated age HEENT: moist mucous membranes, PERRLA CV: tachycardic rate, regular rhythm Respiratory: CTA-no wheezing Abdomen: Soft, nontender, no masses Extremities: moves all four equally Neuro: No focal deficits Psych: A&Ox3, normal affect - Plan Date/Time: 03/17/19 6721 I, Trip Starks MD, have evaluated this patient and agree with findings/ plan as outlined by risk management internship resident. Pertinent changes/additions are listed here. 1. Sepsis 2/2 suspected pyelonephritis - Cultures pending - Empiric antibiotics - IVF hydration - Will complete pelvic exam with testing to determine STD vs other pathogens 2. Biliary Colic - Will order HIDA scan for tomorrow due to US results PCP: Jered CODE STATUS: FULL CODE Disposition: Stable, admit to inpatient medical Addendum - Attending - Attending Attestation Date/Time: 03/17/19 4488 I personally evaluated the patient and discussed the management with Dr. Monaco. I agree with the History, Examination, Assessment and Plan documented above with any addition or exceptions noted below. The patient is admitting for sepsis 2/2 pyelonephritis and possibly PID. Will get speculum exam. Blood and urine cultures pending. Treating with rocephin. Pt with right CVA tenderness. She also has RUQ tenderness which is mild and u/ s showed sludge. If pain persists, may consider HIDA scan. Will get GC/ [place], VP3 to further workup possible PID. Starting IV fluids. Replace potassium.
[2019-03-17 14:14] VITALS: BMI 30.9
[2019-03-17] MEDS: Acetaminophen 325 MG TAB PO PRN ×2 (14:19→20:52)
[2019-03-17] MEDS: Lactated Ringer's 1,000 ML IV SCH ×2 (16:00→23:46)
[2019-03-17] MEDS: metroNIDAZOLE 500 MG TAB PO SCH (20:52)
[2019-03-17] MEDS ORDERED: FLU VACC QS2019-20(6MOS UP)/PF 60 MCG/0.5 ML SYRINGE IM ONE (21:00)
[2019-03-17] MEDS ORDERED: Acetaminophen 1,000 MG in Premix Bag 1 BAG IVPB PRN (23:48)
[2019-03-17] MEDS ORDERED: Acetaminophen 500 MG TAB PO PRN (23:50)
[2019-03-17] MEDS: Ibuprofen 200 MG TAB PO PRN (23:56)
[2019-03-17] MEDS ORDERED: Lactated Ringer's 1,000 ML IV SCH (23:59)
--- NOTE | 2019-03-18 05:48 | PDOC.FM ---
- Subjective Subjective: Patient doing well this morning. Reports she had two bouts of emesis last night after she ate, but has been able to keep fluids down. Reports her pain is improved. Has been able to void normally, had some diarrhea yesterday. - Objective Vital Signs & Weight: Vital Signs (12 hours) Temp Pulse Resp BP Pulse Ox 03/18/19 04:26 99.0 F 98 16 106/67 98 03/18/19 02:00 99 F 03/18/19 00:00 102.8 F H 118 H 18 113/63 99 03/17/19 21:30 99.5 F 03/17/19 20:00 100.7 F H 110 H 18 96/65 99 Weight Weight 79.379 kg I&O: 03/16/19 03/17/19 03/18/19 06:59 06:59 06:59 Intake Total 240 Balance 240 Result Diagrams: 03/18/19 05:18 03/18/19 05:17 Phys Exam - Physical Examination Constitutional: NAD HEENT: moist MMs, sclera anicteric Neck: supple, full ROM Respiratory: no wheezing, clear to auscultation bilateral Cardiovascular: RRR, no significant murmur Gastrointestinal: soft slight RUQ tenderness Musculoskeletal: no edema, pulses present R CVA tenderness Neurological: normal sensation, moves all 4 limbs Psychiatric: normal affect, A&O x 3 Skin: normal turgor, cap refill <2 seconds Dx/Plan (1) Leukocytosis Code(s): D72.829 - ELEVATED WHITE BLOOD CELL COUNT, UNSPECIFIED Status: Acute (2) Pyelonephritis Code(s): N12 - TUBULO-INTERSTITIAL NEPHRITIS, NOT SPCF ACUTE OR CHRONIC Status: Acute (3) Sepsis Code(s): A41.9 - SEPSIS, UNSPECIFIED ORGANISM Status: Acute Qualifiers: Sepsis type: sepsis due to unspecified organism Sepsis acute organ dysfunction status: without acute organ dysfunction Qualified Code(s): A41.9 - Sepsis, unspecified organism - Plan Plan: 18 y/o F admitted to medical for further treatment and evaluation of sepsis, most likely secondary to pyelonephritis. #Sepsis 2/2 suspected pyelonephritis, PID, or UTI, vs gallbladder etiology - SIRS: HR 121, 22.7 - Pt fluid resuscitated and Rocephin started in ED. - Tmax of 102.8 overnight with pulse of 118 - Continue maintenance fluids at LR 125 mL/hr. - Continue Rocephin 1 G Q24H for pyelonephritis, flagyl for trichomonas/ gardnerella - VP3: +trichomonas, +gardnerella - additional workup: Gc/C pending - Abdominal U/S: Normal - Transvaginal U/S: No major pathology identified - HIDA scan today - urine ccx and blood ccx pending - Spec Exam: Tenderness with exam, yellow, foul smelling discharge at os. - tylenol and IBP #Leukocytosis - WBC 22.7 > 17.5 - will trend CBC daily - UA shows evidence of UTI, suspect pyelonephritis #Hx of spontaneous - X2 weeks ago #Hx of Chlamydia - Pt unsure is she was treated - GC/C swab pending - Spec Exam: Tenderness with exam, yellow, foul smelling discharge at os. #Diarrhea, started 03/17 -stool studies Code status: Full code Diet: Clears, will advance as tolerated DVT ppx: SCD's Dispo: admitted to inpatient medical for antibiotics for pyelonephritis. Will recommend re-testing for trichomonas outpatient 2-3 weeks after hospital stay . Addendum - Attending - Attending Attestation Date/Time: 03/18/19 1221 I personally evaluated the patient and discussed the management with Dr. Chaudhary. I agree with the History, Examination, Assessment and Plan documented above with any addition or exceptions noted below. Pt febrile to 103 this morning. cultures positive for BV and trichomonas. Treating the std's. Urine culture growing e.coli. Awaiting final cultures. Giving rocephin for pyelonephritis. Continue fluids. Stool studies added for diarrhea. Back off to liquids due to nausea.
[2019-03-18 06:12] LABS: ALT (SGPT) 9 U/L (8-55); AST (SGOT) 13 U/L (5-34); Albumin 3.2 g/dL (3.5-5.0); Alkaline Phosphatase 74 U/L (40-100); Anion Gap 10 mmol/L (10-20); BUN (Urea Nitrogen) 6 mg/dL (7.0-18.7); Bilirubin, Total 0.6 mg/dL (0.2-1.2); Calc. Creatinine Clearance 134 mL/min (70-130); Calcium 8.4 mg/dL (7.8-10.44); Carbon Dioxide 27 mmol/L (22-29); Chloride 106 mmol/L (98-107); Estimated GFR-MDRD Greater than 90; Globulin 2.7 g/dL (2.4-3.5); Glucose 96 mg/dL (70-105); Potassium 3.8 mmol/L (3.5-5.1); Protein, Total 5.9 g/dL (6.0-8.3); Sodium 139 mmol/L (136-145)
[2019-03-18 06:55] LABS: #Basophils 0.1 thou/uL (0.0-0.2); #Eosinphils 0.1 thou/uL (0.0-0.7); #Lymphocytes 2.2 thou/uL (1.20-3.40); #Monocytes 2.2 thou/uL (0.11-0.59); #Neutrophils 12.9 thou/uL (1.40-6.50); %Basophils 0.3 % (0.0-1.0); %Eosinophils 0.4 % (0.0-10.0); %Lymphocytes 12.7 % (28.0-48.0); %Monocytes 12.7 % (0.0-4.0); %Neutrophils 73.9 % (31.0-61.0); Hemoglobin 12.2 g/dL (12.0-16.0); Mean Corpuscular HGB CONC 32.6 g/dL (32.0-36.0); Mean Corpuscular Hemoglobin 27.9 pg (25.0-35.0); Mean Corpuscular Volume 85.6 fL (78.0-98.0); Mean Platelet Volume 7.1 fL (7.4-10.4); Platelet Count 206 thou/uL (130-400); RBC Distribution Width 12.4 % (11.5-14.5); RBC Morphology Normal; Red Blood Cell (RBC) Count 4.37 mill/uL (4.00-5.20); White Blood Cell (WBC) Count 17.5 thou/uL (4.8-10.8)
[2019-03-18] MEDS: Ibuprofen 200 MG TAB PO PRN ×2 (08:19→17:43)
[2019-03-18] MEDS: Lactated Ringer's 1,000 ML IV SCH ×3 (08:20→22:23)
[2019-03-18] MEDS ORDERED: Azithromycin 200 MG/5 ML Oral Suspension PO ONE (09:08)
[2019-03-18] MEDS: metroNIDAZOLE 500 MG TAB PO SCH ×2 (09:16→20:34)
[2019-03-18] MEDS ORDERED: Azithromycin 250 MG TAB PO SCH (10:00)
[2019-03-18] MEDS: cefTRIAXone\\ROCEPHIN 1 GM in Sodium Chloride 0.9% 100 ML IVPB SCH (10:14)
[2019-03-19] MEDS: Ibuprofen 200 MG TAB PO PRN ×2 (00:11→12:34)
--- NOTE | 2019-03-19 05:27 | PDOC.FM ---
- Subjective Subjective: Patient doing well this morning. Did not have any bouts of emesis overnight with liquid diet. Reports improved CVA tenderness. Febrile overnight, Tmax 101.4F at 0000 03/19. - Objective Vital Signs & Weight: Vital Signs (12 hours) Temp Pulse Resp BP Pulse Ox 03/19/19 04:00 98.8 F 81 18 108/73 99 03/19/19 01:30 99.6 F 92 98 03/19/19 00:00 101.4 F H 110 H 18 123/80 100 03/18/19 20:00 98 03/18/19 19:15 98.8 F 92 18 101/66 98 Weight Weight 79.379 kg I&O: 03/17/19 03/18/19 03/19/19 06:59 06:59 06:59 Intake Total 2755 1730 Balance 2755 1730 Result Diagrams: 03/19/19 04:54 03/19/19 06:51 Phys Exam - Physical Examination Constitutional: NAD HEENT: moist MMs, sclera anicteric Neck: supple, full ROM Respiratory: no wheezing, clear to auscultation bilateral Cardiovascular: RRR, no significant murmur Gastrointestinal: soft, non-tender RUQ no longer tender Musculoskeletal: no edema, pulses present R CVA tenderness, improved Neurological: normal sensation, moves all 4 limbs Psychiatric: normal affect, A&O x 3 Skin: no rash, normal turgor Dx/Plan (1) Leukocytosis Code(s): D72.829 - ELEVATED WHITE BLOOD CELL COUNT, UNSPECIFIED Status: Acute (2) Pyelonephritis Code(s): N12 - TUBULO-INTERSTITIAL NEPHRITIS, NOT SPCF ACUTE OR CHRONIC Status: Acute (3) Sepsis Code(s): A41.9 - SEPSIS, UNSPECIFIED ORGANISM Status: Acute Qualifiers: Sepsis type: sepsis due to unspecified organism Sepsis acute organ dysfunction status: without acute organ dysfunction Qualified Code(s): A41.9 - Sepsis, unspecified organism - Plan Plan: 18 y/o F admitted to medical for further treatment and evaluation of sepsis, most likely secondary to pyelonephritis. #Sepsis 2/2 suspected pyelonephritis, PID, or UTI, vs gallbladder etiology - SIRS: HR 121, 22.7 - Pt fluid resuscitated and Rocephin started in ED. - Tmax of 101.4 overnight with pulse of 110 - Continue maintenance fluids at LR 125 mL/hr. - Continue Rocephin 1 G Q24H for pyelonephritis, flagyl for trichomonas/ gardnerella - VP3: +trichomonas, +gardnerella - additional workup: Gc/C pending - Abdominal U/S: Normal - Transvaginal U/S: No major pathology identified - urine ccx: e coli, sensitive to rocephin, cefepime, cefoxitin, ceftazidine, meropenem, nitrofurantoin, zosyn - blood ccx pending - Spec Exam: Tenderness with exam, yellow, foul smelling discharge at os. - tylenol and IBP - Advance diet today #Leukocytosis - WBC 22.7 > 17.5 > 13.0 - will trend CBC daily - UA shows evidence of UTI, suspect pyelonephritis - on rocephin and flagyl #Hx of spontaneous - X2 weeks ago #Hx of Chlamydia - Pt unsure is she was treated - GC/C swab pending - received 1g azithromycin 03/19 - Spec Exam: Tenderness with exam, yellow, foul smelling discharge at os. #Diarrhea, started 03/17 -stool studies neg Code status: Full code Diet: Regular DVT ppx: SCD's Dispo: admitted to inpatient medical for IV antibiotics for pyelonephritis, febrile overnight. Will recommend re-testing for trichomonas outpatient 2-3 weeks after hospital stay. Gc/c pending, will follow. Addendum - Attending - Attending Attestation Date/Time: 03/19/19 1035 I personally evaluated the patient and discussed the management with Dr. Chaudhary. I agree with the History, Examination, Assessment and Plan documented above with any addition or exceptions noted below. The patient's fevers are slowly improving. Will advance diet today to verify that she can take po. Gc/Chlamydia still pending. Pt remains on rocephin and flagyl for pyelo 2/2 e.coli, trichomonas and bv.
[2019-03-19] MEDS: Lactated Ringer's 1,000 ML IV SCH ×3 (06:26→22:19)
[2019-03-19 06:42] LABS: Band 7 % (5-11); Eosinophils 3 % (0-10); Hemoglobin 11.1 g/dL (12.0-16.0); Lymphocytes 21 % (28-48); MDiff Complete? YES; Mean Corpuscular HGB CONC 31.9 g/dL (32.0-36.0); Mean Corpuscular Hemoglobin 27.3 pg (25.0-35.0); Mean Corpuscular Volume 85.5 fL (78.0-98.0); Mean Platelet Volume 7.7 fL (7.4-10.4); Monocytes 12 % (0-4); Neutrophil 57 % (31-61); Platelet Count 214 thou/uL (130-400); RBC Distribution Width 12.3 % (11.5-14.5); Red Blood Cell (RBC) Count 4.06 mill/uL (4.00-5.20)
[2019-03-19 07:24] LABS: Albumin 3.2 g/dL (3.5-5.0)
[2019-03-19 07:25] LABS: Chloride 104 mmol/L (98-107); Potassium 3.5 mmol/L (3.5-5.1); Sodium 139 mmol/L (136-145)
[2019-03-19 07:26] LABS: Calcium 8.6 mg/dL (7.8-10.44); Glucose 89 mg/dL (70-105)
[2019-03-19 07:27] LABS: Globulin 2.7 g/dL (2.4-3.5); Protein, Total 5.9 g/dL (6.0-8.3)
[2019-03-19 07:28] LABS: Anion Gap 10 mmol/L (10-20); Bilirubin, Total 0.3 mg/dL (0.2-1.2); Carbon Dioxide 29 mmol/L (22-29)
[2019-03-19 07:29] LABS: Alkaline Phosphatase 96 U/L (40-100)
[2019-03-19 07:30] LABS: Calc. Creatinine Clearance 161 mL/min (70-130); Estimated GFR-MDRD Greater than 90
[2019-03-19 07:31] LABS: AST (SGOT) 23 U/L (5-34); BUN (Urea Nitrogen) Less than 4 mg/dL (7.0-18.7)
[2019-03-19 07:32] LABS: ALT (SGPT) 21 U/L (8-55)
[2019-03-19] MEDS: metroNIDAZOLE 500 MG TAB PO SCH ×2 (08:53→20:15)
[2019-03-19] MEDS: cefTRIAXone\\ROCEPHIN 1 GM in Sodium Chloride 0.9% 100 ML IVPB SCH (12:34)
[2019-03-20] MEDS ORDERED: Benzonatate 100 MG CAP PO PRN (00:19)
[2019-03-20] MEDS: Ibuprofen 200 MG TAB PO PRN (03:54)
--- NOTE | 2019-03-20 05:38 | PDOC.FM ---
- Subjective Subjective: Patient is doing well this morning. Reports she was able to tolerate some food yesterday, no bouts of emesis. Reports her abdominal/back pain have greatly improved. Discussed possible d/c today, patient agreeable with plan of care. - Objective Vital Signs & Weight: Vital Signs (12 hours) Temp Pulse Resp BP Pulse Ox 03/20/19 03:50 99.4 F 03/20/19 00:10 99.1 F 03/19/19 20:00 99 03/19/19 19:20 100 03/19/19 19:10 98.7 F 109 H 18 111/73 100 Weight Weight 79.379 kg I&O: 03/18/19 03/19/19 03/20/19 06:59 06:59 06:59 Intake Total 2755 3320 854 Balance 2755 3320 854 Result Diagrams: 03/20/19 06:49 03/20/19 06:49 Phys Exam - Physical Examination Constitutional: NAD HEENT: moist MMs, sclera anicteric Neck: supple, full ROM Respiratory: no wheezing, clear to auscultation bilateral Cardiovascular: RRR, no significant murmur Gastrointestinal: soft, non-tender, positive bowel sounds Musculoskeletal: no edema, pulses present no CVA tenderness Neurological: normal sensation, moves all 4 limbs Psychiatric: normal affect, A&O x 3 Skin: no rash, normal turgor Dx/Plan (1) Leukocytosis Code(s): D72.829 - ELEVATED WHITE BLOOD CELL COUNT, UNSPECIFIED Status: Acute (2) Pyelonephritis Code(s): N12 - TUBULO-INTERSTITIAL NEPHRITIS, NOT SPCF ACUTE OR CHRONIC Status: Acute (3) Sepsis Code(s): A41.9 - SEPSIS, UNSPECIFIED ORGANISM Status: Acute Qualifiers: Sepsis type: sepsis due to unspecified organism Sepsis acute organ dysfunction status: without acute organ dysfunction Qualified Code(s): A41.9 - Sepsis, unspecified organism - Plan Plan: 18 y/o F admitted to medical for further treatment and evaluation of sepsis, most likely secondary to pyelonephritis. #Sepsis 2/2 suspected pyelonephritis, PID, or UTI, vs gallbladder etiology - SIRS: HR 121, 22.7 - Pt fluid resuscitated and Rocephin started in ED. - Tmax of 99.9 overnight - Continue Rocephin 1 G Q24H for pyelonephritis, flagyl for trichomonas/ gardnerella - VP3: +trichomonas, +gardnerella - additional workup: Gc/C pending - Abdominal U/S: Normal - Transvaginal U/S: No major pathology identified - urine ccx: e coli, sensitive to rocephin, cefepime, cefoxitin, ceftazidine, meropenem, nitrofurantoin, zosyn - blood ccx pending, ngtd - Spec Exam: Tenderness with exam, yellow, foul smelling discharge at os. - tylenol and IBP - tolerating diet well, will likely d/c today with PO cefdinir and flagyl #Leukocytosis, resolved - WBC 22.7 > 17.5 > 13.0 > 8.5 - UA shows evidence of UTI, suspect pyelonephritis - on rocephin and flagyl #Hx of spontaneous - X2 weeks ago #Hx of Chlamydia - Pt unsure is she was treated - GC/C swab pending, will follow - received 1g azithromycin 03/19 - Spec Exam: Tenderness with exam, yellow, foul smelling discharge at os. #Diarrhea, started 03/17 -stool studies neg Code status: Full code Diet: Regular DVT ppx: SCD's Dispo: admitted to inpatient medical for IV antibiotics for pyelonephritis, afebrile overnight. Will recommend re-testing for trichomonas outpatient 2-3 weeks after hospital stay. Gc/c pending, will follow. Can likely d/c today with continued PO abx and f/u outpatient. Addendum - Attending - Attending Attestation Date/Time: 03/20/19 3066 I personally evaluated the patient and discussed the management with Dr. Chaudhary. I agree with the History, Examination, Assessment and Plan documented above with any addition or exceptions noted below. The patient is doing well. Will d/c on oral antibiotics.
[2019-03-20] MEDS: Lactated Ringer's 1,000 ML IV SCH (06:07)
[2019-03-20 07:28] LABS: Hemoglobin 11.4 g/dL (12.0-16.0); Mean Corpuscular HGB CONC 32.3 g/dL (32.0-36.0); Mean Corpuscular Hemoglobin 28.1 pg (25.0-35.0); Mean Corpuscular Volume 86.9 fL (78.0-98.0); Mean Platelet Volume 6.8 fL (7.4-10.4); Platelet Count 271 thou/uL (130-400); RBC Distribution Width 12.3 % (11.5-14.5); Red Blood Cell (RBC) Count 4.08 mill/uL (4.00-5.20); White Blood Cell (WBC) Count 8.5 thou/uL (4.8-10.8)
[2019-03-20 07:48] LABS: ALT (SGPT) 17 U/L (8-55); AST (SGOT) 17 U/L (5-34); Alkaline Phosphatase 82 U/L (40-100); Anion Gap 9 mmol/L (10-20); BUN (Urea Nitrogen) Less than 4 mg/dL (7.0-18.7); Bilirubin, Total 0.3 mg/dL (0.2-1.2); Calc. Creatinine Clearance 163 mL/min (70-130); Calcium 8.6 mg/dL (7.8-10.44); Carbon Dioxide 27 mmol/L (22-29); Chloride 106 mmol/L (98-107); Estimated GFR-MDRD Greater than 90; Globulin 2.8 g/dL (2.4-3.5); Glucose 88 mg/dL (70-105); Potassium 3.4 mmol/L (3.5-5.1); Protein, Total 5.8 g/dL (6.0-8.3); Sodium 139 mmol/L (136-145)
[2019-03-20] MEDS: metroNIDAZOLE 500 MG TAB PO SCH (08:40)
[2019-03-20 09:07] LABS: Band 12 % (5-11); Eosinophils 5 % (0-10); Lymphocytes 32 % (28-48); MDiff Complete? YES; Monocytes 12 % (0-4); Neutrophil 34 % (31-61); Platelet Morphology Comment Appears Adequate; RBC Morphology Normal; Reactive Lymphocytes 5 % (0-10)
[2019-03-20] MEDS: cefTRIAXone\\ROCEPHIN 1 GM in Sodium Chloride 0.9% 100 ML IVPB SCH (11:17)
[2019-03-20 11:40] VITALS: BP 111/72; TEMP 98.4
--- NOTE | 2019-03-21 15:01 | DIS ---
DATE OF ADMISSION: 03/17/2019 DATE OF DISCHARGE: 03/20/2019 ADMITTING RESIDENT: Shannan Monaco DO ADMITTING ATTENDING: Cristela Gongora MD DISCHARGE ATTENDING: Cristela Gongora MD DISCHARGE RESIDENT: Barbara Chaudhary MD CONSULTS: None. PROCEDURES: None. PRIMARY DIAGNOSES: Sepsis due to pyelonephritis, leukocytosis. SECONDARY DIAGNOSES: History of spontaneous , history of reported untreated chlamydia, diarrhea. DISCHARGE MEDICATIONS: 1. Cefdinir 300 mg p.o. b.i.d. x16 tablets. 2. Metronidazole 500 mg p.o. b.i.d. x9 tablets. 3. Home Tylenol No. 3. 4. Home docusate. 5. Home ferrous sulfate. 6. Home ibuprofen. DISCONTINUED MEDICATIONS: 1. IV ceftriaxone. 2. Azithromycin. 3. Ibuprofen. 4. Tylenol. 5. Tessalon Perles. 6. Zofran. HISTORY OF PRESENT ILLNESS/HOSPITAL COURSE: A 18-year-old female with past medical history of spontaneous 2 weeks before admission, presented to the emergency department with 4-days of headache, right-sided flank pain, and bilateral lower extremity pain. She has a history of childbirth this past August and told that she had chlamydia at that time, though the patient could not recall if she had been treated. The patient was found to have tenderness with pelvic exam and yellow vaginal discharge, VP3 positive for Trichomonas and Gardnerella. She was started on IV ceftriaxone, p.o. Flagyl, and was given a 1 g dose of azithromycin for possibly untreated chlamydia. White blood cell count on admission was 22.7, decreased to 8.5 by the date of discharge. Diet was advanced as tolerated. The patient had recurrent bouts of emesis on the day of admission, though could tolerate whole food on the day of discharge. Gonorrhea and chlamydia testing came back inconclusive, patient was notified to have repeat testing at her pcp's office. Urine culture grew out E. coli sensitive to Rocephin. The patient was afebrile for 24 hours before the day of discharge and was discharged with p.o. cefdinir for her UTI/pyelonephritis and Flagyl for her Trichomonas/Gardnerella. The patient was given script to allow her time to rest at home and return to work on 03/25. The patient was agreeable with the plan of care of being discharged and to follow up with her primary care provider at [facility]. It was recommended the patient that she have repeat testing for Trichomonas 2 to 3 weeks after treatment, as well as repeat gonorrhea/chlamydia testing. DISPOSITION: Stable. DISCHARGE INSTRUCTIONS: 1. Location: Home. 2. Diet: Regular, increase p.o. fluid intake. 3. Activity: As tolerated, return to work on 03/25/2019. 4. Follow up with PCP within 1 week. Job ID: [id number] [facility]
[2019-03-21 23:01] LABS: Chlamydia by PCR Inconclusive (NotDetected); GC by PCR Inconclusive (NotDetected)
== END 2019-03-20 13:14 | disposition home or self-care (01) | DRG 872 ==
LOC: ERS 09:07 → T4-B 12:04
PROVIDERS: ADMIT Family Medicine; ATTEND Family Medicine
DX: A41.9 Sepsis, unspecified organism (principal); N12 Tubulo-interstitial nephritis, not specified as acute or chronic; B96.20 Unspecified Escherichia coli [E. coli] as the cause of diseases classified elsewhere; R19.7 Diarrhea, unspecified; K80.50 Calculus of bile duct without cholangitis or cholecystitis without obstruction; N73.9 Female pelvic inflammatory disease, unspecified; B96.89 Other specified bacterial agents as the cause of diseases classified elsewhere
CPT/HCPCS: 36415; 71045; 76705; 76856; 80053; 81003; 81015; 83605; 83690; 84484; 84702; 85025; 87040; 87045; 87046; 87077; 87086; 87186; 87324; 87427; 87449; 87480; 87491; 87510; 87591; 87660; 87804; 90471; 90686; 93005; 96361; 96365; G0008; J0696; J3490; Q0162

== ENCOUNTER 2019-04-17 05:02 | Emergency (ER) | payer BC ==
[2019-04-17 05:47] LABS: Bacteria/HPF None Seen HPF (None Seen); Bilirubin Negative (Negative); Blood, Urine Negative (Negative); Clarity Clear (Clear); Glucose, Urine (Dipstick) Normal (Negative); Leukocyte 25 Leu/uL (Negative); Nitrite Negative (Negative); Protein, Urine (Dipstick) 10 mg/dL (Neg-Trace); RBC/HPF 0-3 HPF (0-3); Squamous Epithelial None Seen HPF (0-3); Urobilinogen Normal mg/dL (Less than 2)
[2019-04-17 05:50] LABS: Pregnancy Test - Urine (BHCG) Negative (Negative); Pregu Control Background? CLEAR/WHITE (CLR/WHITE); Pregu Control Bar Appear? YES (CONTROL BAR); Specific Gravity 1.026 (1.002-1.036)
== END 2019-04-17 05:56 | disposition home or self-care (01) ==
LOC: ERS 05:02
DX: N39.0 Urinary tract infection, site not specified (principal); M54.9 Dorsalgia, unspecified
CPT/HCPCS: 81003; 81015; 81025; 96372; 99283

== ENCOUNTER 2019-06-04 17:23 | Emergency (ER) | payer BC ==
[2019-06-04] MEDS ORDERED: Dexamethasone 10 MG/ML VIAL ONE (19:14)
== END 2019-06-04 20:34 | disposition home or self-care (01) ==
LOC: ERS 17:23
DX: J02.9 Acute pharyngitis, unspecified (principal)
CPT/HCPCS: 87081; 87430; 87804; 99283; J1100

== ENCOUNTER 2019-06-23 21:38 | Emergency (ER) | payer BC ==
[2019-06-24] MEDS ORDERED: Dexamethasone 10 MG/ML VIAL ONE (00:53)
== END 2019-06-24 01:05 | disposition home or self-care (01) ==
LOC: ERS 21:38
DX: J02.8 Acute pharyngitis due to other specified organisms (principal); B97.89 Other viral agents as the cause of diseases classified elsewhere
CPT/HCPCS: 87081; 87430; 99283; J1100

== ENCOUNTER 2019-07-13 17:05 | Inpatient (IN) | payer BC ==
[~2019-07-13 17:05] MED LIST: Iopamidol-370 76% 500 ML 1 ML ONE
[2019-07-13 17:58] LABS: Bilirubin Negative (Negative); Blood, Urine Negative (Negative); Clarity Clear (Clear); Glucose, Urine (Dipstick) Normal (Negative); Leukocyte Negative Leu/uL (Negative); Nitrite Negative (Negative); Protein, Urine (Dipstick) Negative (Neg-Trace); Urobilinogen Normal mg/dL (Less than 2)
[2019-07-13 18:02] LABS: Pregnancy Test - Urine (BHCG) Negative (Negative); Pregu Control Background? CLEAR/WHITE (CLR/WHITE); Pregu Control Bar Appear? YES (CONTROL BAR); Specific Gravity 1.023 (1.002-1.036)
[2019-07-13 18:03] LABS: Hemoglobin 13.5 g/dL (12.0-16.0); Mean Corpuscular Hemoglobin 27.5 pg (25.0-35.0); Mean Corpuscular Volume 86.1 fL (78.0-98.0); Mean Platelet Volume 7.1 fL (7.4-10.4); Platelet Count 300 thou/uL (130-400); RBC Distribution Width 13.1 % (11.5-14.5); Red Blood Cell (RBC) Count 4.91 mill/uL (4.00-5.20); White Blood Cell (WBC) Count 17.5 thou/uL (4.8-10.8)
[2019-07-13] MEDS ORDERED: Morphine 4 MG/ML VIAL ONE (18:03)
[2019-07-13] MEDS ORDERED: Ondansetron PF 4 MG/2 ML Vial ONE (18:03)
[2019-07-13 18:17] LABS: Band 6 % (5-11); Eosinophils 1 % (0-10); Lymphocytes 10 % (28-48); MDiff Complete? YES; Monocytes 11 % (0-4); Neutrophil 71 % (31-61); Platelet Morphology Comment Appears Adequate; RBC Morphology Normal; Reactive Lymphocytes 1 % (0-10)
[2019-07-13 18:24] LABS: ALT (SGPT) 9 U/L (8-55); AST (SGOT) 14 U/L (5-34); Albumin 4.4 g/dL (3.5-5.0); Alkaline Phosphatase 101 U/L (40-100); Anion Gap 10 mmol/L (10-20); BUN (Urea Nitrogen) 9 mg/dL (7.0-18.7); Bilirubin, Total 0.5 mg/dL (0.2-1.2); Calc. Creatinine Clearance 0 mL/min (70-130); Calcium 9.3 mg/dL (7.8-10.44); Carbon Dioxide 29 mmol/L (22-29); Chloride 102 mmol/L (98-107); Estimated GFR-MDRD Greater than 90; Globulin 3.2 g/dL (2.4-3.5); Glucose 82 mg/dL (70-105); Lipase 14 U/L (8-78); Potassium 3.6 mmol/L (3.5-5.1); Protein, Total 7.6 g/dL (6.0-8.3); Sodium 137 mmol/L (136-145)
--- NOTE | 2019-07-13 18:36 | ULT ---
TRANSABDOMINAL AND TRANSVAGINAL PELVIC ULTRASOUND: 07/13/19 PROVIDED CLINICAL HISTORY: Pelvic pain. FINDINGS: The uterus and ovaries demonstrate a normal sonographic appearance. Color Doppler and spectral analys is of ovarian waveforms demonstrates normal flow bilaterally. There is no evidence for significant fr ee pelvic fluid. IMPRESSION: No evidence for an acute process. POS: YAN
[2019-07-13] MEDS ORDERED: Azithromycin 250 MG TAB ONE (18:58)
[2019-07-13] MEDS ORDERED: cefTRIAXone\\ROCEPHIN 1 GM VIAL ONE (18:58)
[2019-07-13] MEDS ORDERED: Clindamycin/D5W 900 mg/50 ml Premix Bag ONE (19:36)
--- NOTE | 2019-07-13 19:39 | CT ---
CT OF THE ABDOMEN AND PELVIS WITH IV CONTRAST INDICATION: Periumbilical abdominal pain for 2 days COMPARISON: None FINDINGS: ABDOMEN: Lung bases: Clear Liver: No focal lesion. Gallbladder: Normal appearing. Pancreas: Normal. Adrenal glands: Normal. Spleen: Normal. Kidneys and ureters: Normal. No hydronephrosis. Vasculature: Normal. Lymph nodes:No lymphadenopathy. Free fluid in abdomen:No free fluid is evident. PELVIS: Small and large bowel: There are a few mildly prominent fluid-filled loops of jejunum in the left mid abdomen. There is a mild amount retained stool within the colon. Appendix:Normal Bladder: Normal. Rectal and perirectal soft tissues:Normal. Reproductive structures: Normal. Free fluid in pelvis: No free fluid is evident. Lymphadenopathy pelvis: No lymphadenopathy is evident. Osseous structures: No acute osseous abnormality. No destructive osteolytic or osteoblastic lesion i s identified. Soft tissues:There is an scar involving the lower anterior midline of abdomen likely related to prior . IMPRESSION: 1. Findings suspicious for mild jejunal enteritis. 2. Mild amount retained stool within the colon.
[2019-07-13] MEDS ORDERED: Ketorolac Tromethamine 30 MG/ML VIAL ONE (20:31)
[2019-07-13] MEDS ORDERED: Gentamicin Sulfate 300 MG in Sodium Chloride 0.9% 100 ML IVPB SCH (21:00)
[2019-07-13] MEDS ORDERED: Ondansetron PF 4 MG/2 ML Vial IVP PRN (21:17)
[2019-07-13] MEDS ORDERED: HYDROcodone/Acetaminophen 5/325 mg Tablet PO PRN (21:17)
[2019-07-13] MEDS ORDERED: Acetaminophen 325 MG TAB PO PRN (21:17)
[2019-07-13 21:34] LABS: Lactic Acid 0.8 mmol/L (0.5-2.2)
--- NOTE | 2019-07-13 21:59 | PDOC.FPRHP ---
- Allergies/Adverse Reactions Allergies Allergy/AdvReac Type Severity Reaction Status Date / Time No Known Allergies Allergy Verified 08/12/18 14:50 - Home Medications Medication Instructions Recorded Confirmed Type Acetaminophen With Codeine 1 - 2 tablet PO Q6HR PRN 08/16/18 03/17/19 History [Tylenol with Codeine #3] Docusate Calcium [Surfak] 240 mg PO BID #30 cap 08/16/18 03/17/19 Rx Ferrous Sulfate [Feosol] 325 mg PO BID #60 tab 08/16/18 03/17/19 Rx Ibuprofen [Motrin] 800 mg PO Q8HR #20 tab 08/16/18 03/17/19 Rx Cefdinir [Omnicef] 300 mg PO BID #16 cap 03/20/19 Rx metroNIDAZOLE [Flagyl] 500 mg PO BID #9 tab 03/20/19 Rx - History PMHx: PSHx: FHx: Social: - Vital signs BP: [] HR: [] RR: [] Tmax: [] Pox: []% on [] Wt: [] FMR H&P: Results - Labs Result Diagrams: 07/14/19 05:55 07/14/19 05:55 Lab results: WBC 17.5 thou/uL (4.8-10.8) H 07/13/19 17:52 Hgb 13.5 g/dL (12.0-16.0) 07/13/19 17:52 Hct 42.3 % (36.0-47.0) 07/13/19 17:52 MCV 86.1 fL (78.0-98.0) 07/13/19 17:52 Plt Count 300 thou/uL (130-400) 07/13/19 17:52 Band Neuts % (Manual) 6 % (5-11) 07/13/19 17:52 Sodium 137 mmol/L (136-145) 07/13/19 17:52 Potassium 3.6 mmol/L (3.5-5.1) 07/13/19 17:52 Chloride 102 mmol/L (98-107) 07/13/19 17:52 Carbon Dioxide 29 mmol/L (22-29) 07/13/19 17:52 BUN 9 mg/dL (7.0-18.7) 07/13/19 17:52 Creatinine 0.79 mg/dL (0.6-1.1) 07/13/19 17:52 Glucose 82 mg/dL (70-105) 07/13/19 17:52 Lactic Acid 0.8 mmol/L (0.5-2.2) 07/13/19 21:09 Calcium 9.3 mg/dL (7.8-10.44) 07/13/19 17:52 Total Bilirubin 0.5 mg/dL (0.2-1.2) 07/13/19 17:52 AST 14 U/L (5-34) 07/13/19 17:52 ALT 9 U/L (8-55) 07/13/19 17:52 Alkaline Phosphatase 101 U/L (40-100) H 07/13/19 17:52 Serum Total Protein 7.6 g/dL (6.0-8.3) 07/13/19 17:52 Albumin 4.4 g/dL (3.5-5.0) 07/13/19 17:52 Lipase 14 U/L (8-78) 07/13/19 17:52 Urine Ketones Negative mg/dL (Negative) 07/13/19 17:40 Urine Blood Negative (Negative) 07/13/19 17:40 Urine Nitrite Negative (Negative) 07/13/19 17:40 Ur Leukocyte Esterase Negative Elizabeth/uL (Negative) 07/13/19 17:40 FMR H&P: A/P - Problem List (1) PID (acute pelvic inflammatory disease) Current Visit: Yes Status: Acute Code(s): N73.0 - ACUTE PARAMETRITIS AND PELVIC CELLULITIS (2) Sepsis Current Visit: No Status: Acute Code(s): A41.9 - SEPSIS, UNSPECIFIED ORGANISM Qualifiers: Sepsis type: sepsis due to unspecified organism Sepsis acute organ dysfunction status: without acute organ dysfunction Qualified Code(s): A41.9 - Sepsis, unspecified organism FMR H&P: Upper Level - Plan Date/Time: 07/13/192158 PCP: Jered HPI: This is 18 yo F who comes in for abdominal pain that has been going on for 2 days. She states it started periumbical but then radiated to the RLQ and LLQ. She is tolerating PO. She has vomited x2 today but no blood. Denies diarrhea. Denies new sexual partners. Denies blood in the stool. She just finished her period yesterday, it had been 5 days, states they are regular. She denies dysuria. The patient had a similar episode in March of this year. She was found to have Trichomonas, BV, and inconclusive chlamydia. She was treated for pyelonephritis 2/2 e. coli. Her presentation was similar at that time. OB Hx: 1 c/s term, 1 spontaneous PMH: denies PSH: c/s x1 Meds: denies Allergies: NKDA Soc Hx: denies smoking, alcohol, drugs Fm hx: denies breast/ovarian cancers REVIEW OF SYSTEMS: Gen: no fever, chills, or sweats Neuro: denies headache Eyes: no visual changes ENT: no hearing changes, no sore throat, no congestion Resp: denies cough, SOB Card: denies murmurs, rubs, gallups GI: see hpi Heme: no easy bruising/bleeding, no blood thinners Skin: no rash, no erythema Vitals: BP 111/78 R 20 P 111 T99.6 98 on RA 79kg PHYSICAL EXAMINATION: General: NAD, alert and oriented x3 HEENT: PERRLA, EOMI, normal sclera, oropharynx without erythema or exudate Neck: Supple. Full ROM. 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 No cyanosis or edema Neuro: No gross deficits appreciated. CN 2-12 grossly intact Psychiatry: Awake, Alert and cooperative with exam Skin: No lesions, rashes, or ulcers Musculoskeletal: Full ROM A/P: # Sepsis 2/2 Suspected PID - s/p azithro, gent, rocephin, clinda in ED. Lactic 0.8. - cont with doxy, ceftriaxone, flaggyl - blood cx, urine cx, vp3, gc/ct pending - UA neg, lactic pending, WBC 17.5, tachycardia - CT abd/pelv no acute process, TVUS negative for acute process - History of chlamydia with , inconclusive in Nov., trichomonas in March. Never had ADOLFO. # Recurrent abdominal pain - Mild jejunal enteritis noted on CT - Consider crohns disease workup outpatient should PID workup come back negative or patient have recurrence Fluids: NS 150ml/hr Code: full PPx: scd Dispo: anticipate d/c tomorrow pending pain control Addendum - Attending - Attending Attestation Date/Time: 07/14/19 1034 I personally evaluated the patient and discussed the management with Dr. Lilian Santos I agree with the History, Examination, Assessment and Plan documented above with any addition or exceptions noted below - 18 yo F with no significant PMH presents c/o abdominal pain x 2 days. She states it started periumbical but then radiated to the RLQ and LLQ. She is tolerating PO. She has vomited x2 today but no blood. Denies diarrhea. Denies new sexual partners. Denies blood in the stool. She just finished her period yesterday, it had been 5 days, states they are regular. She denies dysuria. PMH/PSH/ALl?Meds/SH reviewed and agree with resident's documentation. T100.6 VSS Exam repeated by me and agree with resident's findings. Labs: WBC- 17.3, H/H=13.5/42.3. CT abd- mild enhancement in area of jejunum. Pelvic USG- no acute findings.A/P: 1) Fever/abd pain- pyelonephritis vs. PID- Admit to medical. Continue abx. Blood, urine cultures collected and GC/CT swab.
[2019-07-13] MEDS: HYDROcodone/Acetaminophen 5/325 mg Tablet PO PRN (22:00)
[2019-07-13 22:56] VITALS: BMI 30.8
[2019-07-13] MEDS: metroNIDAZOLE 500 MG in Premix Bag 1 BAG IVPB SCH (23:05)
[2019-07-13] MEDS: Sodium Chloride 0.9% 1,000 ML IV SCH (23:06)
[2019-07-14] MEDS: Sodium Chloride 0.9% 1,000 ML IV SCH ×3 (05:17→17:56)
--- NOTE | 2019-07-14 05:20 | PDOC.FM ---
- Subjective Subjective: Patient was resting comfortably in bed at the time of evaluation. She denied any acute overnight events, but stated that she thought she may have had a subjective fever. Her abdomen remains tender, but she denies any N/V, dysuria or intractable pain. - Objective Vital Signs & Weight: Vital Signs (12 hours) Temp Pulse Resp BP Pulse Ox 07/14/19 01:30 98.8 F 109 H 16 107/68 07/13/19 23:05 100 F H 117 H 18 89/47 L 07/13/19 21:50 100.6 F H 113 H 20 107/59 L 98 Weight Weight 78.925 kg I&O: 07/12/19 07/13/19 07/14/19 06:59 06:59 07:59 Intake Total 100 Balance 100 Result Diagrams: 07/14/19 05:55 07/14/19 05:55 Phys Exam - Physical Examination Constitutional: NAD HEENT: PERRLA, moist MMs, sclera anicteric, oral pharynx no lesions Neck: supple, full ROM Respiratory: no wheezing, no rales, no rhonchi, clear to auscultation bilateral Cardiovascular: RRR, no significant murmur, no rub Gastrointestinal: soft, no distention, positive bowel sounds Diffuse TTP Musculoskeletal: no edema, pulses present Neurological: non-focal, moves all 4 limbs Psychiatric: normal affect Skin: no rash Dx/Plan (1) Bacterial vaginosis Code(s): N76.0 - ACUTE VAGINITIS; B96.89 - OTH BACTERIAL AGENTS THE CAUSE OF DISEASES CLASSD ELSWHR Status: Acute (2) PID (acute pelvic inflammatory disease) Code(s): N73.0 - ACUTE PARAMETRITIS AND PELVIC CELLULITIS Status: Acute (3) Sepsis Code(s): A41.9 - SEPSIS, UNSPECIFIED ORGANISM Status: Acute Qualifiers: Sepsis type: sepsis due to unspecified organism Sepsis acute organ dysfunction status: without acute organ dysfunction Qualified Code(s): A41.9 - Sepsis, unspecified organism - Plan Plan: Patient is a 18 y/o female who presents to the ED for evaluation of ABD Pain. 1. 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 Monitor for signs of clinical improvement after 24H of IV ABx and transition to PO Doxycycline and Metronidazole - 14D course. Expected LOS < 24H. Addendum - Attending - Attending Attestation Date/Time: 07/14/19 1022 I personally evaluated the patient and discussed the management with Dr. Mckinnon I agree with the History, Examination, Assessment and Plan documented above with any addition or exceptions noted below - Patient reports that pain in bacl is better but still having lower abdominal pain L>R. Denies N/V. Tm 100.6 VSS. A /P: 1) Fever/abd pain- pyelonephritis versus PID- Continue current abx. Blood, urine and cervical cultures pending.
[2019-07-14] MEDS: metroNIDAZOLE 500 MG in Premix Bag 1 BAG IVPB SCH ×3 (06:21→21:29)
[2019-07-14 06:22] LABS: Band 5 % (5-11); Hemoglobin 11.5 g/dL (12.0-16.0); Lymphocytes 16 % (28-48); MDiff Complete? YES; Mean Corpuscular HGB CONC 32.2 g/dL (32.0-36.0); Mean Corpuscular Hemoglobin 27.8 pg (25.0-35.0); Mean Corpuscular Volume 86.2 fL (78.0-98.0); Mean Platelet Volume 7.1 fL (7.4-10.4); Monocytes 4 % (0-4); Neutrophil 75 % (31-61); Platelet Count 247 thou/uL (130-400); Platelet Morphology Comment Appears Adequate; RBC Morphology Normal; Red Blood Cell (RBC) Count 4.13 mill/uL (4.00-5.20); White Blood Cell (WBC) Count 20.3 thou/uL (4.8-10.8)
[2019-07-14 06:23] LABS: ALT (SGPT) 11 U/L (8-55); AST (SGOT) 16 U/L (5-34); Albumin 3.4 g/dL (3.5-5.0); Alkaline Phosphatase 73 U/L (40-100); Anion Gap 9 mmol/L (10-20); BUN (Urea Nitrogen) 9 mg/dL (7.0-18.7); Bilirubin, Total 0.5 mg/dL (0.2-1.2); Calc. Creatinine Clearance 147 mL/min (70-130); Calcium 8.1 mg/dL (7.8-10.44); Carbon Dioxide 25 mmol/L (22-29); Chloride 107 mmol/L (98-107); Estimated GFR-MDRD Greater than 90; Globulin 2.5 g/dL (2.4-3.5); Glucose 118 mg/dL (70-105); Potassium 4.2 mmol/L (3.5-5.1); Protein, Total 5.9 g/dL (6.0-8.3); Sodium 137 mmol/L (136-145)
[2019-07-14] MEDS: HYDROcodone/Acetaminophen 5/325 mg Tablet PO PRN ×3 (06:25→20:09)
[2019-07-14] MEDS: Famotidine 20 MG TAB PO SCH ×2 (09:36→21:53)
[2019-07-14] MEDS: Doxycycline 100 MG CAP PO SCH ×2 (09:36→21:31)
[2019-07-14 18:14] LABS: Chlamydia by PCR DETECTED (NotDetected); GC by PCR DETECTED (NotDetected)
[2019-07-14] MEDS ORDERED: cefTRIAXone\\ROCEPHIN 1 GM in Sodium Chloride 0.9% 100 ML IVPB SCH (20:00)
[2019-07-15] MEDS: metroNIDAZOLE 500 MG in Premix Bag 1 BAG IVPB SCH (05:38)
[2019-07-15] MEDS: Sodium Chloride 0.9% 1,000 ML IV SCH (05:38)
--- NOTE | 2019-07-15 06:09 | PDOC.FM ---
- Subjective Subjective: She is feeling well this morning. She had an episode of vomiting yesterday morning, but she has not had an episode since. She had a bowel movement last night. She says she is having LLQ pain that is currently a 3/10. The pain was originally an 8/10 when she came in to the hospital. - Objective MAR Reviewed: Yes Vital Signs & Weight: Vital Signs (12 hours) Temp Pulse Resp BP Pulse Ox 07/15/19 05:38 97.6 F 93 12 114/58 L 07/14/19 21:34 98.5 F 89 14 115/70 98 07/14/19 19:00 98.1 F 92 14 110/69 98 Weight Weight 78.925 kg I&O: 07/13/19 07/14/19 07/15/19 05:59 06:59 06:59 Intake Total 1850 Balance 1850 Result Diagrams: 07/15/19 07:03 07/14/19 05:55 Phys Exam - Physical Examination Constitutional: NAD HEENT: PERRLA, moist MMs, oral pharynx no lesions Neck: supple, full ROM Respiratory: no wheezing, no rales, no rhonchi, clear to auscultation bilateral Cardiovascular: RRR, no significant murmur, no rub Gastrointestinal: soft, positive bowel sounds TTP in LLQ Musculoskeletal: no edema, pulses present Neurological: normal sensation, moves all 4 limbs Lymphatic: no nodes Psychiatric: normal affect Skin: no rash, normal turgor Dx/Plan (1) Sepsis Code(s): A41.9 - SEPSIS, UNSPECIFIED ORGANISM Status: Acute Qualifiers: Sepsis type: sepsis due to unspecified organism Sepsis acute organ dysfunction status: without acute organ dysfunction Qualified Code(s): A41.9 - Sepsis, unspecified organism (2) PID (acute pelvic inflammatory disease) Code(s): N73.0 - ACUTE PARAMETRITIS AND PELVIC CELLULITIS Status: Acute (3) Leukocytosis Code(s): D72.829 - ELEVATED WHITE BLOOD CELL COUNT, UNSPECIFIED Status: Acute (4) Bacterial vaginosis Code(s): N76.0 - ACUTE VAGINITIS; B96.89 - OTH BACTERIAL AGENTS THE CAUSE OF DISEASES CLASSD ELSWHR Status: Acute - Plan Plan: Patient is a 18 y/o female who presents to the ED for evaluation of ABD Pain. 1. 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 History of chlamydia with , inconclusive in Mar., trichomonas in March. Never had ADOLFO. 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 Transition to PO Doxycycline and Metronidazole, 14D course. LOS < 24H. Will likely d/c today. Addendum - Attending - Attending Attestation Date/Time: 07/15/19 1013 I personally evaluated the patient and discussed the management with Dr. Lolita Partida I agree with the History, Examination, Assessment and Plan documented above with any addition or exceptions noted below - Patient feeling better. Pain improved; no CVAT. Has some left lower quadrant pain. Afebrile. VSS A/P: 1) PID - improving. Transition to po abx and probable d/c home later today.
[2019-07-15 07:09] LABS: #Basophils 0.1 thou/uL (0.0-0.2); #Eosinphils 0.4 thou/uL (0.0-0.7); #Lymphocytes 2.7 thou/uL (1.20-3.40); #Monocytes 0.7 thou/uL (0.11-0.59); #Neutrophils 4.9 thou/uL (1.40-6.50); %Basophils 0.9 % (0.0-1.0); %Eosinophils 4.4 % (0.0-10.0); %Lymphocytes 30.4 % (28.0-48.0); %Monocytes 8.4 % (0.0-4.0); %Neutrophils 55.8 % (31.0-61.0); Hemoglobin 11.9 g/dL (12.0-16.0); Mean Corpuscular HGB CONC 32.2 g/dL (32.0-36.0); Mean Corpuscular Hemoglobin 27.8 pg (25.0-35.0); Mean Corpuscular Volume 86.5 fL (78.0-98.0); Mean Platelet Volume 6.9 fL (7.4-10.4); Platelet Count 275 thou/uL (130-400); RBC Distribution Width 13.1 % (11.5-14.5); Red Blood Cell (RBC) Count 4.26 mill/uL (4.00-5.20); White Blood Cell (WBC) Count 8.8 thou/uL (4.8-10.8)
[2019-07-15] MEDS: Famotidine 20 MG TAB PO SCH ×2 (08:28→21:46)
[2019-07-15] MEDS: metroNIDAZOLE 500 MG TAB PO SCH ×2 (08:28→21:46)
[2019-07-15] MEDS: Polyethylene Glycol 3350 17 GM Packet PO SCH (08:28)
[2019-07-15] MEDS ORDERED: Doxycycline 100 MG CAP PO SCH (09:00)
[2019-07-15] MEDS ORDERED: Senokot S 8.6-50 MG TAB PO SCH (09:00)
[2019-07-15] MEDS ORDERED: metroNIDAZOLE 500 MG TAB PO SCH (09:00)
[2019-07-15] MEDS ORDERED: Ondansetron ODT 4 MG TAB PO PRN (15:06)
--- NOTE | 2019-07-16 06:22 | PDOC.FM ---
- Subjective Subjective: She says she has not felt nauseous this morning. She is having 1/10 pain, which she does not localize. She says she had 2 loose stools yesterday with flatus. She was able to eat last night without nausea. - Objective MAR Reviewed: Yes Vital Signs & Weight: Vital Signs (12 hours) Temp Pulse Resp BP Pulse Ox 07/16/19 05:00 97.9 F 84 16 118/78 07/16/19 01:00 98.1 F 59 L 17 118/60 07/15/19 21:54 98.1 F 80 17 115/59 L 99 07/15/19 20:00 99 Weight Weight 78.925 kg I&O: 07/14/19 07/15/19 07/16/19 06:59 06:59 06:59 Intake Total 1850 Balance 1850 Result Diagrams: 07/15/19 07:03 07/14/19 05:55 Phys Exam - Physical Examination Constitutional: NAD HEENT: PERRLA, moist MMs, oral pharynx no lesions Neck: supple, full ROM Respiratory: no wheezing, no rales, no rhonchi, clear to auscultation bilateral Cardiovascular: RRR, no significant murmur, no rub Gastrointestinal: soft, non-tender, no distention, positive bowel sounds Musculoskeletal: no edema, pulses present Neurological: normal sensation, moves all 4 limbs Psychiatric: normal affect, A&O x 3 Skin: no rash, normal turgor Dx/Plan (1) Sepsis Code(s): A41.9 - SEPSIS, UNSPECIFIED ORGANISM Status: Acute Qualifiers: Sepsis type: sepsis due to unspecified organism Sepsis acute organ dysfunction status: without acute organ dysfunction Qualified Code(s): A41.9 - Sepsis, unspecified organism (2) PID (acute pelvic inflammatory disease) Code(s): N73.0 - ACUTE PARAMETRITIS AND PELVIC CELLULITIS Status: Acute (3) Leukocytosis Code(s): D72.829 - ELEVATED WHITE BLOOD CELL COUNT, UNSPECIFIED Status: Acute (4) Bacterial vaginosis Code(s): N76.0 - ACUTE VAGINITIS; B96.89 - OTH BACTERIAL AGENTS THE CAUSE OF DISEASES CLASSD ELSWHR Status: Acute (5) Nausea & vomiting Code(s): R11.2 - NAUSEA WITH VOMITING, UNSPECIFIED Status: Acute - Plan Plan: Patient is a 18 y/o female who presents to the ED for evaluation of ABD Pain. 1. 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 History of chlamydia with , inconclusive in Mar., trichomonas in March. Never had ADOLFO. * ABD Pain w/ Fever, Tachycardia and WBC: 17.5 > 8.8 * Lactic Acid: 0.8 * UA: WNL * UCx: NGTD * VP3: + for Gardenerella * GC/Chlamydia: + for Gonorrhea and Chlamydia * BCx: NGTD * TVUS: NAF * CT ABD/Pelvis: Normal Appendix, Mild Jejunal Enteritis * s/p Azithromycin, Gentamycin, Ceftriaxone, Clindamycin in ED * Transitioned from Doxycycline, Ceftriaxone, Metronidazole to Doxycycline and Metronidazole yesterday * Experienced Nausea & Vomiting, so switched Doxycycline to Azithromycin this morning. Will see if she tolerates better then likely d/c. 2. Bacterial Vaginosis VP3: + Gardnerella * Currently on Metronidazole 3. Nausea & Vomiting * Zofran 4 mg Q6H prn * Switched Doxycycline to Azithromycin Code Status: Full Diet: Regular Activity: Ad denise IVF: SL VTE PPx: SCDs Dispo: [facility] Quar[facility]/Women obs, Sepsis 2/2 PID. Currently on Azithromycin and Metronidazole, will write for 14D course. LOS < 24H. Will likely d/c today. Addendum - Attending - Attending Attestation Date/Time: 07/16/19 1348 I personally evaluated the patient and discussed the management with Dr. Lolita Partida I agree with the History, Examination, Assessment and Plan documented above with any addition or exceptions noted below - Patient without complaints. No nausea this morning. Pain much better. Afebrile VSS. A/P: 1) PID - improved; plan to d/c home today if tolerates po. F/U in clinic in 2-3 weeks for ADOLFO.
[2019-07-16] MEDS ORDERED: Azithromycin 250 MG TAB PO SCH (09:00)
[2019-07-16] MEDS: Famotidine 20 MG TAB PO SCH (09:30)
[2019-07-16] MEDS: metroNIDAZOLE 500 MG TAB PO SCH (09:30)
[2019-07-16] MEDS: Polyethylene Glycol 3350 17 GM Packet PO SCH (09:30)
[2019-07-16 12:37] VITALS: BP 111/64; TEMP 98.7
--- NOTE | 2019-07-18 01:53 | DIS ---
DATE OF ADMISSION: 07/13/2019 DATE OF DISCHARGE: 07/16/2019 RESIDENT: Darnell Partida MD ADMITTING ATTENDING: Jackie Jade MD DISCHARGE ATTENDING: Jackie Jade MD CONSULTS: None. PROCEDURES PERFORMED: * Pelvic ultrasound on 07/13/2019, showed no evidence of an acute process. * Abdominal pelvis CT on 07/13/2019, showed findings suspicious for mild jejunal enteritis and mild amount of retained stool within the colon. PRIMARY DIAGNOSES: 1. Sepsis secondary to pelvic inflammatory disease 2. Bacterial vaginosis 3. Leukocytosis 4. Nausea and vomiting. SECONDARY DIAGNOSIS: None. DISCHARGE MEDICATIONS: 1. Azithromycin 250 mg daily for 12 days. 2. Metronidazole 500 mg b.i.d. for 12 days. 3. Zofran 4 mg p.o. q.6 hours p.r.n. for nausea and vomiting. DISCONTINUED MEDICATIONS: 1. [place] 5. 2. Doxycycline. 3. Ceftriaxone. 4. Toradol. 5. MiraLAX. 6. Senokot. HISTORY OF PRESENT ILLNESS: The patient is a 18-year-old, G2, P1-0-1-1 female, who came in for abdominal pain that had been going on for two days. She states this started periumbilically, but then radiated to the right lower quadrant and left lower quadrant. She is tolerating p.o. She vomited two times today, but no blood. Denies diarrhea. Denies new sexual partners. Denies blood in stool. She just finished her period yesterday, which had been ongoing for five days. States that it was regular. Denies any dysuria. The patient had similar episode in March of this year and was found to have trichomoniasis, BV, and inconclusive chlamydia. She was treated for pyelonephritis secondary to E coli. Her presentation was somewhere at the top. OB HISTORY: One that was term and one spontaneous . 1. Sepsis secondary to PID. * Has a history of chlamydia with inconclusive in March. * Trichomoniasis in March. * Never had test of cure. * She experienced abdominal pain that was 8/10 upon admission and 1/10 before discharge. * Tachycardia. * White blood cell count was initially 17.5, but trended to 8.8. * Her lactic acid was 0.8. * UA was within normal limits. * Urine culture was negative. * Blood culture was negative. * VP3 was positive for Gardnerella and treated with metronidazole. * GC and chlamydia were both positive. * This was discussed with the patient. She was informed that she needed to finish her course of antibiotics and not have any sexual encounters until partners had been tested and adequately treated. * Transvaginal ultrasound and CT abdomen and pelvis as noted above. * She received azithromycin, gentamicin, and ceftriaxone in the ED. * She was transitioned to p.o. doxycycline and metronidazole. * She experienced continued nausea and vomiting even with Zofran on the doxycycline that was transitioned to azithromycin, where she no longer experienced any nausea or vomiting. 2. Bacterial vaginosis. VP3 was positive for Gardnerella. * Currently on metronidazole. We will complete a 14-day course. 3. Nausea and vomiting. * Zofran 4 mg q.6 p.r.n., and she was switched from doxycycline to azithromycin , which alleviated the nausea and vomiting. DISPOSITION: Stable. DISCHARGE INSTRUCTIONS: 1. Location: Home. 2. Activity: As tolerated. 3. Diet: Regular. 4. Followup: Follow up with Dr. Hanna at [facility] within 7 days of discharge. Job ID: [id number] [facility]
== END 2019-07-16 15:45 | disposition home or self-care (01) | DRG 872 ==
LOC: ERS 17:05 → 3SW 20:39 → OBSVTOIN 20:39
PROVIDERS: ADMIT Obstetrics & Gynecology; ATTEND Obstetrics & Gynecology
DX: A41.9 Sepsis, unspecified organism (principal); N76.0 Acute vaginitis; B96.89 Other specified bacterial agents as the cause of diseases classified elsewhere; N73.9 Female pelvic inflammatory disease, unspecified; K52.9 Noninfective gastroenteritis and colitis, unspecified
CPT/HCPCS: 36415; 74177; 76856; 80053; 81003; 81025; 83605; 83690; 85025; 87040; 87077; 87086; 87480; 87491; 87510; 87591; 87660; 96361; 96365; 96367; 96375; J0696; J1580; J1885; J2270; J2405; J3490; Q0162; Q9967

== ENCOUNTER 2019-10-26 21:32 | Emergency (ER) | payer BC, OTHER ==
[2019-10-27 11:51] LABS: SARS-CoV-2 MS2 Positive; SARS-CoV-2 N Gene Negative; SARS-CoV-2 S Gene Negative; SARS-CoV-2 orf1ab Negative
== END 2019-10-26 23:03 | disposition home or self-care (01) ==
LOC: ERS 21:32
DX: R06.02 Shortness of breath (principal); R05 Cough; Z20.828 Contact with and (suspected) exposure to other viral communicable diseases
CPT/HCPCS: 87635; 99283; U0003

== ENCOUNTER 2019-11-04 18:59 | Emergency (ER) | payer BC | END 2019-11-04 21:08 | disposition left against medical advice (07) | LOC: ERS 18:59 | DX: Z53.21 Procedure and treatment not carried out due to patient leaving prior to being seen by health care provider (principal) ==

== ENCOUNTER 2020-02-15 21:00 | Emergency (ER) | payer BC | END 2020-02-15 22:49 | disposition home or self-care (01) | LOC: ERS 21:00 | DX: H66.92 Otitis media, unspecified, left ear (principal); H61.22 Impacted cerumen, left ear | CPT/HCPCS: 99282 ==

== ENCOUNTER 2020-03-13 16:49 | Emergency (ER) | payer BC ==
[2020-03-13] MEDS ORDERED: Fluorescein Opthalmic Strip ONE (17:30)
[2020-03-13] MEDS ORDERED: Proparacaine 0.5% Opth 15 ML BOT ONE (17:31)
== END 2020-03-13 18:51 | disposition home or self-care (01) ==
LOC: ERS 16:49
DX: H10.9 Unspecified conjunctivitis (principal)
CPT/HCPCS: 99283

== ENCOUNTER 2020-06-11 14:31 | Emergency (ER) | payer BC ==
--- NOTE | 2020-06-11 16:32 | RAD ---
PORTABLE CHEST: Indications: Cough Comparison: 03-17-19 FINDINGS: Lung gregory appear clear. No infiltrate identified. Heart and mediastinum unremarkable. IMPRESSION: No acute finding. POS: AGW
== END 2020-06-11 15:22 | disposition home or self-care (01) ==
LOC: ERS 14:31
DX: J00 Acute nasopharyngitis [common cold] (principal)
CPT/HCPCS: 71045

== ENCOUNTER 2020-08-08 00:47 | Emergency (ER) | payer BC | END 2020-08-08 01:16 | disposition home or self-care (01) | LOC: ERS 00:47 | DX: L30.9 Dermatitis, unspecified (principal) | CPT/HCPCS: 99282 ==

== ENCOUNTER 2021-02-22 15:08 | Emergency (ER) | payer BC ==
[2021-02-22 16:40] LABS: #Eosinphils 0.1 thou/uL (0.0-0.7); #Lymphocytes 2.4 thou/uL (1.20-3.40); #Monocytes 0.9 thou/uL (0.11-0.59); #Neutrophils 8.6 thou/uL (1.40-6.50); %Basophils 0.4 % (0.0-1.0); %Eosinophils 1.1 % (0.0-10.0); %Lymphocytes 19.8 % (21.0-51.0); %Monocytes 7.7 % (0.0-10.0); %Neutrophils 71.1 % (42.0-75.0); Hemoglobin 12.9 g/dL (12.0-16.0); Mean Corpuscular HGB CONC 33.3 g/dL (32.0-36.0); Mean Corpuscular Hemoglobin 28.6 pg (27.0-31.0); Mean Corpuscular Volume 85.8 fL (78.0-98.0); Mean Platelet Volume 6.7 fL (7.4-10.4); Platelet Count 282 thou/uL (130-400); RBC Distribution Width 12.8 % (11.5-14.5); White Blood Cell (WBC) Count 12.1 thou/uL (4.8-10.8)
[2021-02-22 17:04] LABS: ALT (SGPT) 9 U/L (8-55); AST (SGOT) 16 U/L (5-34); Albumin 4.2 g/dL (3.5-5.0); Alkaline Phosphatase 72 U/L (40-110); Anion Gap 16 mmol/L (10-20); BUN (Urea Nitrogen) 7 mg/dL (7.0-18.7); Bilirubin, Total 0.6 mg/dL (0.2-1.2); Calc. Creatinine Clearance 0 mL/min (70-130); Calcium 9.9 mg/dL (7.8-10.44); Carbon Dioxide 23 mmol/L (22-29); Chloride 103 mmol/L (98-107); Globulin 3.1 g/dL (2.4-3.5); Glucose 72 mg/dL (70-105); Protein, Total 7.3 g/dL (6.0-8.3); Sodium 138 mmol/L (136-145)
[2021-02-22] MEDS ORDERED: Ondansetron ODT 4 MG TAB ONE (20:03)
[2021-02-22 20:37] LABS: Bilirubin Negative (Negative); Blood, Urine Negative (Negative); Clarity Turbid (Clear); Glucose, Urine (Dipstick) Normal (Negative); Ketone, Urine Greater than 150 mg/dL (Negative); Leukocyte 25 Leu/uL (Negative); Mucous/LPF 2+ LPF (<2+); Nitrite Negative (Negative); Protein, Urine (Dipstick) 100 mg/dL (Neg-Trace); Specific Gravity, Urine 1.038 (1.002-1.036); Urobilinogen 3 mg/dL (Less than 2)
[2021-02-22 20:46] LABS: Bacteria/HPF 1+ HPF (None Seen)
[2021-02-22] MEDS ORDERED: Promethazine HCl 25 MG/ML VIAL ONE (22:16)
== END 2021-02-22 23:05 | disposition home or self-care (01) ==
LOC: ERS 15:08
DX: O23.41 Unspecified infection of urinary tract in pregnancy, first trimester (principal); N39.0 Urinary tract infection, site not specified; O21.9 Vomiting of pregnancy, unspecified; Z3A.01 Less than 8 weeks gestation of pregnancy
CPT/HCPCS: 36415; 80053; 81003; 81015; 84702; 85025; 87086; 96372; 99284; J2550; Q0162

== ENCOUNTER 2021-03-03 14:59 | Emergency (ER) | payer BC | END 2021-03-03 16:24 | disposition home or self-care (01) | LOC: ERS 14:59 | DX: O21.0 Mild hyperemesis gravidarum (principal); Z3A.08 8 weeks gestation of pregnancy | CPT/HCPCS: 99283 ==

== ENCOUNTER 2021-03-15 08:55 | Emergency (ER) | payer BC ==
[2021-03-15] MEDS ORDERED: Ondansetron ODT 4 MG TAB ONE (09:44)
[2021-03-15 10:25] LABS: Bacteria/HPF 1+ HPF (None Seen); Bilirubin Negative (Negative); Blood, Urine Negative (Negative); Clarity Cloudy (Clear); Glucose, Urine (Dipstick) Normal (Negative); Ketone, Urine Greater than 150 mg/dL (Negative); Leukocyte 25 Leu/uL (Negative); Nitrite Negative (Negative); Protein, Urine (Dipstick) 70 mg/dL (Neg-Trace); Specific Gravity, Urine 1.033 (1.002-1.036)
[2021-03-15] MEDS ORDERED: Ondansetron PF 4 MG/2 ML Vial ONE (10:42)
[2021-03-15 11:24] LABS: Anion Gap 14 mmol/L (10-20); BUN (Urea Nitrogen) 4 mg/dL (7.0-18.7); Calc. Creatinine Clearance 0 mL/min (70-130); Calcium 9.5 mg/dL (7.8-10.44); Carbon Dioxide 23 mmol/L (22-29); Chloride 103 mmol/L (98-107); Glucose 78 mg/dL (70-105); Potassium 3.8 mmol/L (3.5-5.1); Sodium 136 mmol/L (136-145)
== END 2021-03-15 11:42 | disposition home or self-care (01) ==
LOC: ERS 08:55
DX: O21.0 Mild hyperemesis gravidarum (principal); Z3A.10 10 weeks gestation of pregnancy
CPT/HCPCS: 80048; 81003; 81015; 87086; 96374; J2405; Q0162

== ENCOUNTER 2021-08-19 10:59 | Emergency (ER) | payer BC ==
[2021-08-19 12:33] LABS: #Basophils 0.1 thou/uL (0.0-0.2); #Eosinphils 0.2 thou/uL (0.0-0.7); #Monocytes 0.9 thou/uL (0.11-0.59); #Neutrophils 7.1 thou/uL (1.40-6.50); %Basophils 0.7 % (0.0-1.0); %Eosinophils 1.6 % (0.0-10.0); %Lymphocytes 19.8 % (21.0-51.0); %Monocytes 8.8 % (0.0-10.0); %Neutrophils 69.1 % (42.0-75.0); Hemoglobin 11.1 g/dL (12.0-16.0); Mean Corpuscular HGB CONC 32.4 g/dL (32.0-36.0); Mean Corpuscular Hemoglobin 27.6 pg (27.0-31.0); Mean Corpuscular Volume 85.4 fL (78.0-98.0); Mean Platelet Volume 6.6 fL (7.4-10.4); Platelet Count 287 thou/uL (130-400); RBC Distribution Width 12.4 % (11.5-14.5); Red Blood Cell (RBC) Count 4.03 mill/uL (4.20-5.40); White Blood Cell (WBC) Count 10.2 thou/uL (4.8-10.8)
[2021-08-19] MEDS ORDERED: Famotidine/PF 20 mg/2ml Vial ONE (12:40)
[2021-08-19] MEDS ORDERED: Ondansetron PF 4 MG/2 ML Vial ONE (12:40)
[2021-08-19 12:55] LABS: ALT (SGPT) 8 U/L (8-55); AST (SGOT) 14 U/L (5-34); Albumin 3.3 g/dL (3.5-5.0); Alkaline Phosphatase 91 U/L (40-110); Anion Gap 13 mmol/L (10-20); BUN (Urea Nitrogen) 5 mg/dL (7.0-18.7); Bilirubin, Total 0.3 mg/dL (0.2-1.2); Calc. Creatinine Clearance 0 mL/min (70-130); Calcium 8.3 mg/dL (7.8-10.44); Carbon Dioxide 21 mmol/L (22-29); Chloride 104 mmol/L (98-107); Globulin 3.1 g/dL (2.4-3.5); Glucose 81 mg/dL (70-105); Potassium 3.5 mmol/L (3.5-5.1); Protein, Total 6.4 g/dL (6.0-8.3); Sodium 134 mmol/L (136-145)
[2021-08-19 14:57] LABS: Bacteria/HPF 1+ HPF (None Seen); Bilirubin Negative (Negative); Blood, Urine Negative (Negative); Clarity Clear (Clear); Glucose, Urine (Dipstick) Normal (Negative); Ketone, Urine 10 mg/dL (Negative); Leukocyte 500 Leu/uL (Negative); Nitrite Negative (Negative); Protein, Urine (Dipstick) 10 mg/dL (Neg-Trace); RBC/HPF 0-3 HPF (0-3); Specific Gravity, Urine 1.018 (1.002-1.036); Urobilinogen Normal mg/dL (Less than 2); pH, Urine 6.5 (5.0-9.0)
== END 2021-08-19 17:50 | disposition home or self-care (01) ==
LOC: ERS 10:59
DX: O99.613 Diseases of the digestive system complicating pregnancy, third trimester (principal); A08.4 Viral intestinal infection, unspecified; Z3A.32 32 weeks gestation of pregnancy
CPT/HCPCS: 36415; 80053; 81003; 81015; 85025; 96374; 96375; J2405; S0028

== ENCOUNTER 2021-10-04 08:58 | Emergency (ER) | payer BC, SELFPAY ==
[2021-10-04] MEDS ORDERED: Acetaminophen 500 MG TAB ONE (09:13)
[2021-10-04 17:12] LABS: SARS-CoV-2 PCR by NAA Not Detected (NotDetected)
== END 2021-10-04 11:32 | disposition home or self-care (01) ==
LOC: ERS 08:58
DX: J02.9 Acute pharyngitis, unspecified (principal); Z20.822 Contact with and (suspected) exposure to COVID-19
CPT/HCPCS: 87081; 87430; 99283; U0003; U0005